=== PATIENT | female | born 1980 | race African-American/Black ===

== ENCOUNTER 2016-06-01 14:23 | Inpatient (IN) ==
[2016-06-01 15:46] LABS: Basophils % 0.2 %; Eosinophils % 0.2 %; Hematocrit 35.9 % (35.3-44.9); Hemoglobin 12.5 g/dL (11.5-15.4); Immature Granulocytes % 0.4 % (0-4); Lymphocytes # 1.3 K/mcL (0.6-4.6); Lymphocytes % 28.4 %; Mean Corpuscular HGB Conc 34.8 g/dL (31.6-35.5); Mean Corpuscular Hemoglobin 33.6 pg (28.0-33.3); Mean Corpuscular Volume 96.5 fL (83.0-100.0); Mean Platelet Volume 8.5 fL (9.4-12.4); Monocytes # 0.2 K/mcL (0.0-1.3); Platelet Count 305 K/mcL (140-400); Red Blood Count 3.72 M/mcL (3.82-4.97); Red Cell Distribution Width 13.4 % (11.5-14.5); Segmented Neutrophils % 66.8 %
[2016-06-01 15:49] LABS: Bilirubin,Urine Negative (Negative); Blood,Urine Trace (Negative); Clarity,Urine Cloudy (Clear); Color,Urine Yellow (Yellow); Glucose,Urine (UA) Normal (Normal); Ketones,Urine Negative (Negative); Leukocyte Esterase,Urine Trace (Negative); Nitrite,Urine Positive (Negative); PH,Urine 6.5 pH Units (5.0-8.0); Protein,Urine Negative (Neg-Trace); Specific Gravity,Urine 1.017 (1.010-1.025); Urobilinogen,Urine Normal (Normal)
[2016-06-01 15:50] LABS: Bacteria,Urine Moderate per hpf (None-Few); Hyaline Casts,Urine None Seen per lpf (None-Few); Squamous Epithelial Cell,Urine Many per lpf (None-Few)
[2016-06-01 15:59] LABS: BUN/Creatinine Ratio 7 (6-26); Calcium 9.1 mg/dL (8.6-10.8); Carbon Dioxide 23 mEq/L (19-29); Chloride 102 mEq/L (98-109); Glucose 91 mg/dL (70-99); Osmolality,Calculated 281 (280-300); Potassium 3.3 mEq/L (3.5-4.5); Sodium 137 mEq/L (136-145); eGFR For African Americans > 60 (> 60); eGFR For Non-African Americans > 60 (> 60)
[2016-06-01 16:00] LABS: Blood Urea Nitrogen 5 mg/dL (7-20)
[2016-06-01 21:56] LABS: Activated Partial Thrombo Time 25.3 Seconds (26.0-36.0)
[2016-06-02 04:30] LABS: Basophils % 0.2 %; Eosinophils % 0.4 %; Hematocrit 36.9 % (35.3-44.9); Hemoglobin 12.8 g/dL (11.5-15.4); Immature Granulocytes % 0.2 % (0-4); Lymphocytes # 1.8 K/mcL (0.6-4.6); Lymphocytes % 32.4 %; Mean Corpuscular HGB Conc 34.7 g/dL (31.6-35.5); Mean Corpuscular Hemoglobin 33.3 pg (28.0-33.3); Mean Corpuscular Volume 96.1 fL (83.0-100.0); Mean Platelet Volume 8.3 fL (9.4-12.4); Monocytes # 0.2 K/mcL (0.0-1.3); Monocytes % 4.4 %; Neutrophils # 3.4 K/mcL (1.6-8.9); Platelet Count 307 K/mcL (140-400); Red Blood Count 3.84 M/mcL (3.82-4.97); Red Cell Distribution Width 13.4 % (11.5-14.5); Segmented Neutrophils % 62.4 %
[2016-06-02 04:41] LABS: BUN/Creatinine Ratio 6 (6-26); Calcium 9.2 mg/dL (8.6-10.8); Carbon Dioxide 24 mEq/L (19-29); Chloride 102 mEq/L (98-109); Glucose 86 mg/dL (70-99); Osmolality,Calculated 276 (280-300); Potassium 3.3 mEq/L (3.5-4.5); Sodium 135 mEq/L (136-145); eGFR For African Americans > 60 (> 60); eGFR For Non-African Americans > 60 (> 60)
[2016-06-02 04:43] LABS: Blood Urea Nitrogen 4 mg/dL (7-20)
[2016-06-02 16:35] LABS: Amphetamine Screen,Urine Negative ng/mL (Cutoff=1000); Barbiturate Screen,Urine Negative ng/mL (Cutoff=200); Benzodiazepines Screen,Urine Negative ng/mL (Cutoff=200); Cannabinoid Screen,Urine Negative ng/mL (Cutoff = 50); Cocaine Screen,Urine Negative ng/mL (Cutoff= 300); Opiate Screen,Urine Positive ng/mL (Cutoff=300); Phencyclidine Screen,Urine Negative ng/mL (Cutoff=25)
[2016-06-03 05:44] LABS: BUN/Creatinine Ratio 8 (6-26); Blood Urea Nitrogen 6 mg/dL (7-20); Calcium 8.9 mg/dL (8.6-10.8); Carbon Dioxide 24 mEq/L (19-29); Chloride 104 mEq/L (98-109); Glucose 87 mg/dL (70-99); Osmolality,Calculated 281 (280-300); Potassium 3.4 mEq/L (3.5-4.5); Sodium 137 mEq/L (136-145); eGFR For African Americans > 60 (> 60); eGFR For Non-African Americans > 60 (> 60)
[2016-06-04 05:27] LABS: Basophils % 0.2 %; Eosinophils # 0.1 K/mcL (0.0-0.6); Eosinophils % 1.3 %; Hematocrit 34.3 % (35.3-44.9); Hemoglobin 11.9 g/dL (11.5-15.4); Immature Granulocytes % 0.2 % (0-4); Lymphocytes # 1.8 K/mcL (0.6-4.6); Lymphocytes % 39.5 %; Mean Corpuscular HGB Conc 34.7 g/dL (31.6-35.5); Mean Corpuscular Hemoglobin 34.4 pg (28.0-33.3); Mean Corpuscular Volume 99.1 fL (83.0-100.0); Mean Platelet Volume 8.7 fL (9.4-12.4); Monocytes # 0.2 K/mcL (0.0-1.3); Monocytes % 4.5 %; Neutrophils # 2.4 K/mcL (1.6-8.9); Platelet Count 290 K/mcL (140-400); Red Blood Count 3.46 M/mcL (3.82-4.97); Red Cell Distribution Width 13.8 % (11.5-14.5); Segmented Neutrophils % 54.3 %
[2016-06-04 05:48] LABS: BUN/Creatinine Ratio 12 (6-26); Blood Urea Nitrogen 9 mg/dL (7-20); Calcium 8.5 mg/dL (8.6-10.8); Carbon Dioxide 24 mEq/L (19-29); Chloride 105 mEq/L (98-109); Glucose 71 mg/dL (70-99); Magnesium 1.5 mg/dL (1.6-2.6); Osmolality,Calculated 285 (280-300); Phosphorous 4.5 mg/dL (2.3-4.7); Potassium 3.6 mEq/L (3.5-4.5); Sodium 139 mEq/L (136-145); eGFR For African Americans > 60 (> 60); eGFR For Non-African Americans > 60 (> 60)
[2016-06-04 08:53] VITALS: BP 111/75
== END 2016-06-04 13:10 | disposition home or self-care (01) | DRG 690 ==
LOC: EMEROO 14:23 → 3ANU 14:23 → 2NNU 23:06 → SUATTDRO 23:07
PROVIDERS: ADMIT Nurse Practitioner Acute Care; ATTEND Internal Medicine

== ENCOUNTER 2017-08-17 17:39 | Inpatient (IN) ==
[2017-08-17] MEDS ORDERED: cefTRIAXone 1,000 MG in Water for inj. (sterile) 20 ML 10 ML IVP ONE (18:19)
--- NOTE | 2017-08-17 18:25 | Emergency Department Note ---
Disposition Clinical Impression: Pyelonephritis Disposition: Admitted As Inpatient Referrals: Meg Wise MD [Primary Care Provider] - General Adult HPI - General Chief complaint: ED Recheck/Abnormal Lab/Rx Stated complaint: 2x +BC EColi/pylo Time Seen by Provider: 08/17/17 18:16 Source: patient Limitations: no limitations - History of Present Illness Pain Scale: 6 - Related Data Home Medications Medication Instructions Recorded Confirmed OxyCODONE ER (12 HR) [OxyCONTIN] 40 mg PO Q12HR 08/25/16 08/25/16 Previous Rx's Medication Instructions Recorded ALPRAZolam [Xanax 1 MG Tablet] 1 mg PO BID PRN #20 tablet 06/04/16 Lisinopril/Hydrochlorothiazide 1 tab PO DAILY #20 tablet 06/04/16 [Zestoretic 20-25 mg Tablet] Ibuprofen [Motrin] 600 mg PO Q6HR PRN #60 tab 08/25/16 Tramadol HCl [Ultram] 50 mg PO BID PRN #20 tab 08/25/16 Cephalexin [Keflex] 500 mg PO Q8H #21 capsule 08/16/17 Oxycodone HCl/Acetaminophen 1 each PO Q6H PRN 1 Days #4 tablet 08/16/17 [Percocet 5-325 mg Tablet] Allergies Allergy/AdvReac Type Severity Reaction Status Date / Time No Known Allergies Allergy Verified 08/25/16 12:01 Past Medical History - Past Medical History Medical history: Reports: hypertension, other Surgical history: Reports: breast surgery, knee replacement, other Psychiatric history: Reports: anxiety, depression - Social History Smoking Status: Never smoker Smokeless Tobacco Status: No Alcohol use: Reports: occasionally Drug use: Reports: none Physical Exam - General Limitations: no limitations General appearance: alert, in no apparent distress Course Vital Signs Temperature 101.5 F H 08/17/17 17:51 Pulse Rate 112 08/17/17 17:51 Respiratory Rate 18 08/17/17 17:51 Blood Pressure 125/76 08/17/17 17:51 O2 Sat by Pulse Oximetry 98 08/17/17 17:51 Temperature 101.5 F H 08/17/17 17:51 Pulse Rate 112 08/17/17 17:51 Respiratory Rate 18 08/17/17 17:51 Blood Pressure 125/76 08/17/17 17:51 O2 Sat by Pulse Oximetry 98 08/17/17 17:51 Oxygen Delivery Oxygen Delivery Room Air Attestation Statement - Attestation Attestation: I examined this patient and my medical decision-making was reviewed with the Resident Physician. I agree with the documented findings, disposition and treatment plan as described except to the extent set forth below. 37 year old female presnte to the eD wi complaints of pyelonephritis and was seen here yesterday for UTI symptoms and we have called her back today secondary to growing out Ecoli in her urine and blood culture. We will need admisison to the [facility] and we have started sepsis protocol due to elevated lactic acid yesterday. repeat labs have been ordered as well as rocephin.
--- NOTE | 2017-08-17 18:26 | Emergency Department Note ---
Disposition Clinical Impression: Pyelonephritis, Bacteremia Sepsis Qualifiers: Sepsis type: sepsis due to unspecified organism Qualified Code(s): A41.9 - Sepsis, unspecified organism Disposition: Admitted As Inpatient Condition: Good Referrals: Meg Wise MD [Primary Care Provider] - Forms: ED Satisfaction Letter Recheck wound or abnormal lab - General Chief Complaint: ED Recheck/Abnormal Lab/Rx Stated Complaint: 2x +BC EColi/pylo Time Seen by Provider: 08/17/17 18:16 Source: patient Mode of arrival: private vehicle Limitations: no limitations Nursing Notes Reviewed: Yes Vital Signs Reviewed: Yes - History of Present Illness HPI Narrative: 37-year-old female history of chronic UTIs presents to the ER with a chief complaint of abnormal lab results. Reports that she actually started having her UTI symptoms including foul-smelling urine and cloudiness about 1 month ago. Denies any recent antibiotics. She was evaluated here yesterday and diagnosed with a UTI. Reports she was given a dose of IV antibiotics and started on oral antibiotics. Her blood culture results were positive so she was called to come back in for evaluation. She reports chills at home as well as fevers. She has been nauseous and having diarrhea. Reports pain is mostly in her right flank. She has a prior history of kidney stones when she was 16. No history of requiring extraction. No other complaints. Pt Subjective Complaint: abnormal lab(s) Initial Visit (ago): day(s) Symptoms Since Prior Visit: no new symptoms Associated symptoms: fever, chills, nausea, abdominal pain Treatments prior to arrival: given antibiotics on (08/16) - Related Data Home Medications Medication Instructions Recorded Confirmed diazePAM [Valium] 5 mg PO BID 08/17/17 08/17/17 Previous Rx's Medication Instructions Recorded Lisinopril/Hydrochlorothiazide 1 tab PO DAILY #20 tablet 06/04/16 [Zestoretic 20-25 mg Tablet] Allergies Allergy/AdvReac Type Severity Reaction Status Date / Time No Known Allergies Allergy Verified 08/25/16 12:01 All systems ED: reviewed and negative except as stated. Constitutional: Reports: fever, chills Gastrointestinal: Reports: abdominal pain, nausea, diarrhea. Denies: vomiting Genitourinary: Reports: dysuria. Denies: hematuria Past Medical History - Past Medical History Attestation: Yes The following information was validated with the patient. Source: patient Medical history: Reports: hypertension, other Surgical history: Reports: breast surgery, knee replacement, other Psychiatric history: Reports: anxiety, depression - Social History Smoking Status: Never smoker Smokeless Tobacco Status: No Alcohol use: Reports: occasionally Drug use: Reports: none Physical Exam - General Limitations: no limitations General appearance: alert, in no apparent distress - Head Head exam: atraumatic, normocephalic - Eye Eye exam: Present: normal appearance - ENT ENT exam: normal exam - Neck Neck exam: Present: normal inspection - Chest Chest inspection: Present: normal inspection, symmetric chest wall rise - Respiratory Respiratory exam: Present: normal lung sounds bilaterally - Cardiovascular Cardiovascular exam: Present: normal rhythm, tachycardia, normal heart sounds - Abdominal Exam Abdominal exam: Present: soft, tenderness (Moderate right flank tenderness without distention guarding or rigidity otherwise.) - Extremities Exam Extremities exam: Present: normal inspection, full ROM - Expanded Upper Extremity Exam Shoulder exam: Present: normal inspection, full ROM Arm exam: Present: normal inspection, full ROM Elbow exam: Present: normal inspection, full ROM Forearm/Wrist exam: Present: normal inspection, full ROM Hand exam: Present: normal inspection, full ROM - Expanded Lower Extremity Exam Hip/Pelvis exam: Present: normal inspection, full ROM Upper leg exam: Present: normal inspection, full ROM Knee exam: Present: normal inspection, full ROM Lower leg exam: Present: normal inspection, full ROM Ankle exam: Present: normal inspection, full ROM Foot/toe exam: Present: normal inspection, full ROM - Skin Skin exam: Present: warm Course Course Narrative: Patient seen and examined. Vital signs reviewed. Febrile and tachycardic. Source being suspected pyelonephritis. Plan to start IV fluids, labs including lactate, repeat blood cultures. Reviewed her prior culture sensitivities showing Escherichia coli that was mostly pansensitive. We will repeat her blood cultures, given a dose of Rocephin, CT scan given prior history of kidney stones due to concern for septic stone and admit for pyelonephritis, sepsis. Patient in agreement with plan. Vital Signs Temperature 101.5 F H 08/17/17 17:51 Pulse Rate 112 08/17/17 17:51 Respiratory Rate 18 08/17/17 17:51 Blood Pressure 125/76 08/17/17 17:51 O2 Sat by Pulse Oximetry 98 08/17/17 17:51 Temperature 101.5 F H 08/17/17 17:51 Pulse Rate 112 08/17/17 17:51 Respiratory Rate 18 08/17/17 17:51 Blood Pressure 125/76 08/17/17 17:51 O2 Sat by Pulse Oximetry 99 08/17/17 19:04 Oxygen Delivery Oxygen Delivery Room Air Recheck wound or abnormal lab - MDM Narrative Medical decision making narrative: 37-year-old female with right flank pain, dysuria. Recently seen for UTI. Abnormal labs with positive blood cultures today. Febrile and tachycardic on arrival. Meets sepsis criteria for pyelonephritis. Reviewed prior cultures showing relatively lan sensitive Escherichia coli. Patient given 1 L IV fluids , Rocephin, Tylenol and admitted to the hospitalist service for pyelonephritis, bacteremia, sepsis. - Lab Data Lab results reviewed: Yes I reviewed the patient's lab results. Result diagrams: 08/17/17 18:37 08/17/17 18:37 Lab Results 08/17/17 08/17/17 08/17/17 Range/Units 18:37 18:37 18:37 WBC 5.1 (4.3-11.1) K/mcL RBC 3.42 L (3.82-4.97) M/mcL Hgb 11.8 (11.5-15.4) g/dL Hct 33.6 L (35.3-44.9) % MCV 98.2 (83.0-100.0) fL MCH 34.5 H (28.0-33.3) pg MCHC 35.1 (31.6-35.5) g/dL RDW 12.8 (11.5-14.5) % Plt Count 187 (140-400) K/mcL MPV 9.1 L (9.4-12.4) fL Immature Gran % 0.4 (0-4) % Seg Neutrophils % 83.5 % Lymphocytes % 9.8 % Monocytes % 5.9 % Eosinophils % 0.2 % Basophils % 0.2 % Neutrophils # 4.2 (1.6-8.9) K/mcL Lymphocytes # 0.5 L (0.6-4.6) K/mcL Monocytes # 0.3 (0.0-1.3) K/mcL Eosinophils # 0.0 (0.0-0.6) K/mcL Basophils # 0.0 (0.0-0.2) K/mcL PT 10.6 (9.4-12.1) Seconds INR 1.0 APTT 27.9 (26.0-36.0) Seconds Sodium 134 L (136-145) mEq/L Potassium 2.6 L (3.5-5.1) mEq/L Chloride 100 (98-107) mEq/L Carbon Dioxide 22 L (23-29) mEq/L BUN 5 L (6-20) mg/dL Creatinine 0.59 L (0.60-1.20) mg/dL Est GFR ( Amer) > 60 (> 60) Est GFR (Non-Af Amer) > 60 (> 60) BUN/Creatinine Ratio 8 (6-26) Glucose 100 (70-105) mg/dL Calculated Osmolality 275 L (280-300) Lactic Acid (0.5-2.2) mmol/L Calcium 8.9 (8.6-10.3) mg/dL Phosphorus 1.7 L (2.7-4.5) mg/dL Magnesium 1.4 L (1.6-2.6) mg/dL Total Bilirubin 0.4 (0.3-1.0) mg/dL Direct Bilirubin 0.1 (0.0-0.2) mg/dL Indirect Bilirubin 0.3 (0.0-1.2) mg/dL AST 34 (13-39) Units/L ALT 18 (7-52) Units/L Alkaline Phosphatase 79 (34-104) Units/L Troponin I < 0.03 (< 0.04) ng/mL Serum Total Protein 6.9 (6.4-8.9) g/dL Albumin 3.4 L (3.5-5.7) g/dL Globulin 3.5 (2.4-3.5) g/dL Albumin/Globulin Ratio 1.0 L (1.1-2.2) Urine Color (Yellow) Urine Clarity (Clear) Urine pH (5.0-8.0) pH Units Ur Specific [place] (1.010-1.025) Urine Protein (Neg-Trace) mg/dL Urine Glucose (UA) (Normal) mg/dL Urine Ketones (Negative) mg/dL Urine Blood (Negative) Urine Nitrite (Negative) Urine Bilirubin (Negative) Urine Urobilinogen (Normal) mg/dL Ur Leukocyte Esterase (Negative) Urine Microscopic RBC (0-3) per hpf Urine Microscopic WBC (0-3) per hpf Ur Squamous Epith Cells (None-Few) per lpf Urine Bacteria (None-Few) per hpf Hyaline Casts (None-Few) per lpf Ur Culture Indicated? (NO) 08/17/17 08/17/17 Range/Units 18:37 19:20 WBC (4.3-11.1) K/mcL RBC (3.82-4.97) M/mcL Hgb (11.5-15.4) g/dL Hct (35.3-44.9) % MCV (83.0-100.0) fL MCH (28.0-33.3) pg MCHC (31.6-35.5) g/dL RDW (11.5-14.5) % Plt Count (140-400) K/mcL MPV (9.4-12.4) fL Immature Gran % (0-4) % Seg Neutrophils % % Lymphocytes % % Monocytes % % Eosinophils % % Basophils % % Neutrophils # (1.6-8.9) K/mcL Lymphocytes # (0.6-4.6) K/mcL Monocytes # (0.0-1.3) K/mcL Eosinophils # (0.0-0.6) K/mcL Basophils # (0.0-0.2) K/mcL PT (9.4-12.1) Seconds INR APTT (26.0-36.0) Seconds Sodium (136-145) mEq/L Potassium (3.5-5.1) mEq/L Chloride (98-107) mEq/L Carbon Dioxide (23-29) mEq/L BUN (6-20) mg/dL Creatinine (0.60-1.20) mg/dL Est GFR ( Amer) (> 60) Est GFR (Non-Af Amer) (> 60) BUN/Creatinine Ratio (6-26) Glucose (70-105) mg/dL Calculated Osmolality (280-300) Lactic Acid 1.3 (0.5-2.2) mmol/L Calcium (8.6-10.3) mg/dL Phosphorus (2.7-4.5) mg/dL Magnesium (1.6-2.6) mg/dL Total Bilirubin (0.3-1.0) mg/dL Direct Bilirubin (0.0-0.2) mg/dL Indirect Bilirubin (0.0-1.2) mg/dL AST (13-39) Units/L ALT (7-52) Units/L Alkaline Phosphatase (34-104) Units/L Troponin I (< 0.04) ng/mL Serum Total Protein (6.4-8.9) g/dL Albumin (3.5-5.7) g/dL Globulin (2.4-3.5) g/dL Albumin/Globulin Ratio (1.1-2.2) Urine Color Yellow (Yellow) Urine Clarity Clear (Clear) Urine pH 6.0 (5.0-8.0) pH Units Ur Specific [place] 1.010 (1.010-1.025) Urine Protein Trace (Neg-Trace) mg/dL Urine Glucose (UA) Normal (Normal) mg/dL Urine Ketones Negative (Negative) mg/dL Urine Blood Small H (Negative) Urine Nitrite Negative (Negative) Urine Bilirubin Negative (Negative) Urine Urobilinogen Normal (Normal) mg/dL Ur Leukocyte Esterase Small H (Negative) Urine Microscopic RBC 5-15 H (0-3) per hpf Urine Microscopic WBC 15-30 H (0-3) per hpf Ur Squamous Epith Cells Many H (None-Few) per lpf Urine Bacteria None Seen (None-Few) per hpf Hyaline Casts None Seen (None-Few) per lpf Ur Culture Indicated? NO. A (NO) - Radiology Data Radiology results reviewed: Yes I reviewed the patient's radiology results. Abdomen/Pelvis CT 08/17/17 18:30 IMPRESSION: No CT evidence for acute intra-abdominal process. Specifically, no renal, ureteral or intravesicular calculi. No hydronephrosis of either kidney. D/ / Carlos Sylvester / Carlos Sylvester Interpreting Provider: Carlos Sylvester S.B.A.R. - S.BGiuseppeA.RGiuseppe Situation: Demographics, MOA Background: Presenting Complaint, Relevant PMH, Meds, & Allergies Assessment: Vital Signs, Course and respsone to treatment, Exam Concerns, Patient/Family Expectation, Pertinant Lab Results Recommendation: Barrier(s) to disposition, Recommendation based on pending studies, treatments, or consults SMaryjane Report Given to: Dr. Ernesto Washington Repor Time: 19:48
[2017-08-17] MEDS: 0.9 % Sodium Chloride 1,000 ML IVC SCH ×3 (18:51→19:40)
[2017-08-17 18:56] LABS: Basophils % 0.2 %; Eosinophils % 0.2 %; Hematocrit 33.6 % (35.3-44.9); Hemoglobin 11.8 g/dL (11.5-15.4); Immature Granulocytes % 0.4 % (0-4); Lymphocytes # 0.5 K/mcL (0.6-4.6); Lymphocytes % 9.8 %; Mean Corpuscular HGB Conc 35.1 g/dL (31.6-35.5); Mean Corpuscular Hemoglobin 34.5 pg (28.0-33.3); Mean Corpuscular Volume 98.2 fL (83.0-100.0); Mean Platelet Volume 9.1 fL (9.4-12.4); Monocytes # 0.3 K/mcL (0.0-1.3); Monocytes % 5.9 %; Neutrophils # 4.2 K/mcL (1.6-8.9); Platelet Count 187 K/mcL (140-400); Red Blood Count 3.42 M/mcL (3.82-4.97); Red Cell Distribution Width 12.8 % (11.5-14.5); Segmented Neutrophils % 83.5 %
[2017-08-17 19:05] LABS: Prothrombin Time 10.6 Seconds (9.4-12.1)
[2017-08-17 19:08] LABS: Activated Partial Thrombo Time 27.9 Seconds (26.0-36.0)
[2017-08-17 19:13] LABS: Alanine Aminotransferase 18 Units/L (7-52); Albumin 3.4 g/dL (3.5-5.7); Alkaline Phosphatase 79 Units/L (34-104); Aspartate Amino Transferase 34 Units/L (13-39); BUN/Creatinine Ratio 8 (6-26); Bilirubin,Direct 0.1 mg/dL (0.0-0.2); Bilirubin,Indirect 0.3 mg/dL (0.0-1.2); Bilirubin,Total 0.4 mg/dL (0.3-1.0); Blood Urea Nitrogen 5 mg/dL (6-20); Calcium 8.9 mg/dL (8.6-10.3); Carbon Dioxide 22 mEq/L (23-29); Chloride 100 mEq/L (98-107); Globulin 3.5 g/dL (2.4-3.5); Glucose 100 mg/dL (70-105); Magnesium 1.4 mg/dL (1.6-2.6); Osmolality,Calculated 275 (280-300); Phosphorous 1.7 mg/dL (2.7-4.5); Potassium 2.6 mEq/L (3.5-5.1); Sodium 134 mEq/L (136-145); Total Protein 6.9 g/dL (6.4-8.9); Troponin I < 0.03 ng/mL (< 0.04); eGFR For African Americans > 60 (> 60); eGFR For Non-African Americans > 60 (> 60)
[2017-08-17 19:28] LABS: Bilirubin,Urine Negative (Negative); Blood,Urine Small (Negative); Clarity,Urine Clear (Clear); Color,Urine Yellow (Yellow); Glucose,Urine (UA) Normal (Normal); Ketones,Urine Negative (Negative); Leukocyte Esterase,Urine Small (Negative); Nitrite,Urine Negative (Negative); Protein,Urine Trace mg/dL (Neg-Trace); Urobilinogen,Urine Normal (Normal)
[2017-08-17 19:30] LABS: Bacteria,Urine None Seen per hpf (None-Few); Hyaline Casts,Urine None Seen per lpf (None-Few); Squamous Epithelial Cell,Urine Many per lpf (None-Few); WBC,Urine 15-30 per hpf (0-3)
[2017-08-17] MEDS ORDERED: Ketorolac 15 MG/ML VIAL IVP ONE (19:48)
--- NOTE | 2017-08-17 23:11 | Internal Med History&Physical ---
<Jarred Hayes - Last Filed: 08/18/17 03:34> Date of Encounter: 08/18/17 Time of Encounter: 23:11 Internal Medicine - H&P: HPI Chief complaint: flank pain Admitted From: Home Plans for Post Hospital Care: Home History of present illness: Ms. Manning is a 37 year old female w/ pmh of recurrent UTI, s/p tubal ligation in 2002, anxiety, HTN presents with right flank pain that started 1 month ago. Yesterday she was evaluated for UTI and was found to have be positive for Gram neg in urine and blood cx. She was then instructed to come to [place] ED. Patient states she has a sharp 10/10 flank pain that radiates to her back and to her groin. pain is worsened with movement, and is constantly present. Pain is not relieved with tylenol. Patient has associated nausea. Urine has been cloudy, foamy, and foul smelling. Patient denies vomiting, constipation, fever, chills, confusion, difficulty peeing. Past Med Surg Social Fam HX - Past Medical History Medical history: hypertension, other Psychiatric history: anxiety, depression - Past Surgical History Surgical History: breast surgery, knee replacement, other - Social History Smoking Status: Never smoker Smokeless Tobacco Status: No Alcohol use: occasionally Drug use: none - Family History Mother Adopted: Yes Father Adopted: Yes Internal Medicine - H&P: Meds Lisinopril/Hydrochlorothiazide [Zestoretic 20-25 mg Tablet] 1 tab PO DAILY #20 tablet 06/04/16 [Rx] diazePAM [Valium] 5 mg PO BID 08/17/17 [History] 3 Allergy/AdvReac Type Severity Reaction Status Date / Time No Known Allergies Allergy Verified 08/25/16 12:01 All Systems PM: A 10-system review of systems was performed and is negative for pertinent findings except as documented above in the HPI. - Constitutional Constitutional: weakness, no anorexia, no chills, no fever(s), no night sweats - EENT Eyes: no change in vision, no discharge, no pain, no photophobia Ears: no ear discharge, no ear pain, no tinnitus Nose, mouth and throat: no dysphagia, no nasal discharge, no neck pain, no sore throat - Cardiovascular Cardiovascular ROS IM: no chest pain, no claudication, no diaphoresis, no dyspnea, no dyspnea on exertion, no edema, no lightheadedness, no orthopnea, no palpitations, no paroxysmal nocturnal dyspnea, no syncope - Respiratory Respiratory: no cough, no dyspnea, no dyspnea on exertion, no wheezing, no excessive phlegm production - Gastrointestinal Gastrointestinal: no abdominal pain, no diarrhea, no hematemesis, no hematochezia, no melena, no nausea, no vomiting - Genitourinary Genitourinary: no change in urinary stream, no dysuria, no flank pain, no hematuria - Musculoskeletal Musculoskeletal ROS IM: no numbness, no tingling - Integumentary Integumentary IM: no rash, no unusual bruising - Neurological Neurological ROS: no confusion, no convulsions, no focal weakness, no numbness, no tingling, no tremor(s) - Hematologic/Lymphatic Hematologic/Lymphatic: no easy bruising - Constitutional Vitals: Temp Pulse Resp BP Pulse Ox 98.3 F 88 15 123/83 99 08/17/17 21:36 08/17/17 21:36 08/17/17 21:36 08/17/17 21:36 08/17/17 21:36 General appearance: Present: cooperative, mild distress, A&O X 3, pleasant, answers questions appropriately Exam: patient is curled up and in visibly in pain - Head Head exam: Present: atraumatic, normocephalic - Eye Eye exam: Present: PERRL, conjuntiva pink, sclera anicteric Pupils: Present: PERRL - Neck Neck exam general surgery: Present: supple, trachea midline. Absent: lymphadenopathy - Respiratory Respiratory exam: Present: CTAB. Absent: accessory muscle use, chest wall tenderness, decreased breath sounds, prolonged expiratory phase, rales, respiratory distress, rhonchi, wheezes - Cardiovascular Cardiovascular exam: Present: tachycardia. Absent: diastolic murmur, distant heart sounds, gallop, irregular rhythm, JVD, rubs, systolic murmur - GI/Abdominal GI/Abdominal exam: Present: normal bowel sounds, soft, no peritoneal signs. Absent: distended, tenderness - Extremities Exam Extremities exam: Present: warm, radial pulses palpable and symmetrical. Absent : calf tenderness, cyanotic, pedal edema - Neurological Exam Neurological exam: Present: CN II-XII intact, oriented X3, no focal deficits. Absent: pronater drift, facial droop, speech deficit - Skin Skin exam: Present: dry, intact Internal Med - H&P Results - Labs CBC & Chem 7: 08/17/17 18:37 08/17/17 18:37 - Assessment and plan (1) Sepsis Current Visit: Yes Status: Acute Assessment and plan: On admission SIRS criterai (febrile, tachycardic). Source is most likely form UTI/bacteremia. prelim cultures positive for gram negative rods. No acute findings on CT abdomen. Patient is currently stable and no longer tachycardic or febrile. - tylenol for temp control - closely follow vitals - ceftriaxone 1g until sensitivities come back - toradol for pain control - continue IVF - encourage PO fluid intake - morning labs Qualifiers: Sepsis type: sepsis due to unspecified organism Qualified Code(s): A41.9 - Sepsis, unspecified organism (2) Bacteremia Current Visit: Yes Status: Acute Assessment and plan: preliminary positive for gram neg rods. see above (3) Hypertension Current Visit: Yes Status: Chronic Assessment and plan: patient has a previous hx of hypertensive emergency. home rx on hold. - hydralazine PRN if SBP >160 Qualifiers: Hypertension type: essential hypertension Qualified Code(s): I10 - Essential (primary) hypertension (4) Hypokalemia Current Visit: Yes Status: Resolved Assessment and plan: K+ on admission 2.6. K+ PO 40 given in ED. Recheck in AM (5) Nausea Current Visit: Yes Status: Acute Assessment and plan: controlled with zofran. (6) UTI (urinary tract infection) Current Visit: Yes Status: Acute Assessment and plan: prelim gram negative. see above Qualifiers: Urinary tract infection type: acute cystitis Hematuria presence: without hematuria Qualified Code(s): N30.00 - Acute cystitis without hematuria (7) DVT prophylaxis Current Visit: Yes Status: Acute Assessment and plan: sq heparin (8) Hypomagnesemia Current Visit: Yes Status: Acute Assessment and plan: low on admission, replenished. (9) Hypophosphatemia Current Visit: Yes Status: Acute Assessment and plan: low on admission, replenished. - Time Spent With Patient Total time spent is greater than 50% in coordination of care (as documented) at patient's floor/unit and/or counseling patient: <Carla Orozco - Last Filed: 08/18/17 05:39> Date of Encounter: 08/18/17 Internal Medicine - H&P: HPI History of present illness: Ms. Manning is a 37 year old female All Systems PM: A 10-system review of systems was performed and is negative for pertinent findings except as documented above in the HPI. - Constitutional Vitals: Temp Pulse Resp BP Pulse Ox 98.2 F 78 15 101/66 98 08/18/17 03:15 08/18/17 03:15 08/18/17 03:15 08/18/17 03:15 08/18/17 03:15 Internal Med - H&P Results - Labs CBC & Chem 7: 08/18/17 04:09 08/18/17 04:09 Labs: Short CBC 08/18/17 Range/Units 04:09 WBC 3.6 L (4.3-11.1) K/mcL Hgb 9.3 L D (11.5-15.4) g/dL Hct 27.3 L (35.3-44.9) % Plt Count 134 L (140-400) K/mcL Neutrophils # 2.7 (1.6-8.9) K/mcL BMP 08/18/17 04:09 Sodium 136 Potassium 2.7 L Chloride 107 Carbon Dioxide 21 L BUN 4 L Creatinine 0.56 L Glucose 108 H Calcium 7.4 L Liver Function 08/18/17 Range/Units 04:09 Total Bilirubin 0.3 (0.3-1.0) mg/dL AST 33 (13-39) Units/L ALT 16 (7-52) Units/L Alkaline Phosphatase 61 (34-104) Units/L Albumin 2.7 L (3.5-5.7) g/dL - Attending Attestation I have seen and examined this patient independently. I have discussed with resident physician Dr. Hayes regarding the management plan. Agree with the documentation. - Assessment and plan (1) UTI (urinary tract infection) Current Visit: Yes Status: Acute Qualifiers: Urinary tract infection type: acute cystitis Hematuria presence: without hematuria Qualified Code(s): N30.00 - Acute cystitis without hematuria (2) Nausea Current Visit: Yes Status: Acute (3) Hypertension Current Visit: Yes Status: Chronic Qualifiers: Hypertension type: essential hypertension Qualified Code(s): I10 - Essential (primary) hypertension (4) DVT prophylaxis Current Visit: Yes Status: Acute (5) Hypokalemia Current Visit: Yes Status: Resolved (6) Sepsis Current Visit: Yes Status: Acute Qualifiers: Sepsis type: sepsis due to unspecified organism Qualified Code(s): A41.9 - Sepsis, unspecified organism (7) Bacteremia Current Visit: Yes Status: Acute (8) Hypomagnesemia Current Visit: Yes Status: Acute (9) Hypophosphatemia Current Visit: Yes Status: Acute - Time Spent With Patient Total time spent is greater than 50% in coordination of care (as documented) at patient's floor/unit and/or counseling patient:
[2017-08-18] MEDS ORDERED: Naloxone 0.4 MG/ML INJ IVP PRN (01:00)
[2017-08-18] MEDS ORDERED: 0.9 % Sodium Chloride 1,000 ML IVC SCH (01:00)
[2017-08-18] MEDS ORDERED: Acetaminophen 325 MG TABLET PO PRN (01:23)
[2017-08-18] MEDS: *HR* OxyCODONE/APAP 5/325 TABLET PO PRN ×3 (01:51→13:41)
[2017-08-18] MEDS: diazePAM 5 MG TABLET PO SCH ×3 (02:27→20:41)
[2017-08-18] MEDS ORDERED: Potassium Phosphate 44 MEQ in 0.9 % Sodium Chloride 250 ML IVPB ONE (03:32)
[2017-08-18 04:38] LABS: Basophils % 0.3 %; Eosinophils % 0.8 %; Hematocrit 27.3 % (35.3-44.9); Hemoglobin 9.3 g/dL (11.5-15.4); Immature Granulocytes % 0.6 % (0-4); Lymphocytes # 0.6 K/mcL (0.6-4.6); Lymphocytes % 16.5 %; Mean Corpuscular HGB Conc 34.1 g/dL (31.6-35.5); Mean Corpuscular Hemoglobin 34.4 pg (28.0-33.3); Mean Corpuscular Volume 101.1 fL (83.0-100.0); Mean Platelet Volume 9.4 fL (9.4-12.4); Monocytes # 0.2 K/mcL (0.0-1.3); Monocytes % 6.3 %; Neutrophils # 2.7 K/mcL (1.6-8.9); Platelet Count 134 K/mcL (140-400); Red Cell Distribution Width 13.1 % (11.5-14.5); Segmented Neutrophils % 75.5 %
[2017-08-18 04:59] LABS: Alanine Aminotransferase 16 Units/L (7-52); Albumin 2.7 g/dL (3.5-5.7); Alkaline Phosphatase 61 Units/L (34-104); Aspartate Amino Transferase 33 Units/L (13-39); BUN/Creatinine Ratio 7 (6-26); Bilirubin,Total 0.3 mg/dL (0.3-1.0); Blood Urea Nitrogen 4 mg/dL (6-20); Calcium 7.4 mg/dL (8.6-10.3); Carbon Dioxide 21 mEq/L (23-29); Chloride 107 mEq/L (98-107); Globulin 2.7 g/dL (2.4-3.5); Glucose 108 mg/dL (70-105); Osmolality,Calculated 279 (280-300); Potassium 2.7 mEq/L (3.5-5.1); Sodium 136 mEq/L (136-145); Total Protein 5.4 g/dL (6.4-8.9); eGFR For African Americans > 60 (> 60); eGFR For Non-African Americans > 60 (> 60)
[2017-08-18] MEDS: *HR* Heparin 5,000 UNIT/ML VIAL SQ SCH ×2 (05:56→17:37)
[2017-08-18] MEDS ORDERED: Acetaminophen 325 MG TABLET PO SCH (06:00)
[2017-08-18] MEDS ORDERED: Ondansetron 4 MG/2 ML VIAL IVP SCH (06:00)
--- NOTE | 2017-08-18 07:13 | Electrocardiograph Report ---
[address] [address] Test Date: 2017-08-17 Pat Name: Yari Manning Department: 102 Room: 3A14 Gender: F [employer] Librarian: Ekp : 1980 Requested By: Julianne Mays Order Number: [id number] Reading MD: Miles Kolb Measurements Intervals [place] Rate: 98 P: 61 VA: 181 QRS: 23 QRSD: 82 T: 32 QT: 340 QTc: 395 Interpretive Statements SINUS RHYTHM Electronically Signed On 08-18-2017 7:12:30 EDT by Miles Kolb
[2017-08-18] MEDS: Ketorolac 15 MG/ML VIAL IVP PRN ×3 (07:20→23:34)
[2017-08-18] MEDS: cefTRIAXone 1,000 MG in Water for inj. (sterile) 20 ML 10 ML IVP SCH (07:27)
[2017-08-18] MEDS ORDERED: Ondansetron 4 MG/2 ML VIAL IVP PRN (10:12)
--- NOTE | 2017-08-18 10:12 | Internal Med Progress Note ---
Date of Encounter: 08/18/17 Time of Encounter: 09:40 - Assessment and plan (1) Sepsis Current Visit: Yes Status: Acute Assessment and plan: With Escherichia coli due to acute urinary tract infection. Sensitive to ceftriaxone. Will continue ceftriaxone. Repeat blood cultures. Monitor vital signs. Moderate risk for complications. CT scan of the abdomen and pelvis does not show any acute abnormalities. Qualifiers: Sepsis type: Escherichia coli Qualified Code(s): A41.51 - Sepsis due to Escherichia coli [E. coli] (2) UTI (urinary tract infection) Current Visit: Yes Status: Acute Assessment and plan: Continue ceftriaxone to treat Escherichia coli sepsis from UTI Qualifiers: Urinary tract infection type: acute cystitis Hematuria presence: without hematuria Qualified Code(s): N30.00 - Acute cystitis without hematuria (3) Nausea Current Visit: Yes Status: Acute Assessment and plan: Symptomatic treatment. Patient on Zofran (4) Hypertension Current Visit: Yes Status: Chronic Assessment and plan: Blood pressure is well controlled Qualifiers: Hypertension type: essential hypertension Qualified Code(s): I10 - Essential (primary) hypertension (5) DVT prophylaxis Current Visit: Yes Status: Acute (6) Hypokalemia Current Visit: Yes Status: Acute Assessment and plan: Remains hypokalemic. We will replete (7) Bacteremia Current Visit: Yes Status: Acute (8) Hypomagnesemia Current Visit: Yes Status: Acute Assessment and plan: Supplemented (9) Hypophosphatemia Current Visit: Yes Status: Acute Assessment and plan: Supplemented. Will recheck in AM - Time Spent With Patient Total time spent is greater than 50% in coordination of care (as documented) at patient's floor/unit and/or counseling patient: - Subjective Interval history: Patient is awake and alert. Complains of malaise and pain in right subcostal and costovertebral region. No radiation. No new episodes of fever overnight. No dysuria or hematuria. - Constitutional Vitals: Temp Pulse Resp BP Pulse Ox 98.4 F 99 16 121/86 99 08/18/17 07:25 08/18/17 07:25 08/18/17 07:25 08/18/17 07:25 08/18/17 07:25 General appearance: Present: cooperative, mild distress, A&O X 3, pleasant, answers questions appropriately - Respiratory Respiratory exam: Present: CTAB. Absent: accessory muscle use, rales, rhonchi, wheezes - Cardiovascular Cardiovascular exam: Present: RRR, +S1, +S2. Absent: diastolic murmur, gallop, rubs, systolic murmur - GI/Abdominal GI/Abdominal exam: Present: normal bowel sounds, soft, no peritoneal signs. Absent: distended, tenderness - Back Exam Back exam: Present: CVA tenderness (R) - Neurological Exam Neurological exam: Present: CN II-XII intact, oriented X3, no focal deficits. Absent: pronater drift, facial droop, speech deficit - Skin Skin exam: Present: dry, intact Internal Medicine: Result - Labs CBC & Chem 7: 08/18/17 04:09 08/18/17 04:09 Labs: Short CBC 08/18/17 Range/Units 04:09 WBC 3.6 L (4.3-11.1) K/mcL Hgb 9.3 L D (11.5-15.4) g/dL Hct 27.3 L (35.3-44.9) % Plt Count 134 L (140-400) K/mcL Neutrophils # 2.7 (1.6-8.9) K/mcL BMP 08/18/17 04:09 Sodium 136 Potassium 2.7 L Chloride 107 Carbon Dioxide 21 L BUN 4 L Creatinine 0.56 L Glucose 108 H Calcium 7.4 L Liver Function 08/18/17 Range/Units 04:09 Total Bilirubin 0.3 (0.3-1.0) mg/dL AST 33 (13-39) Units/L ALT 16 (7-52) Units/L Alkaline Phosphatase 61 (34-104) Units/L Albumin 2.7 L (3.5-5.7) g/dL - ABG Interpretation ABG results: PT/INR, D-dimer PT 10.6 Seconds (9.4-12.1) 08/17/17 18:37 Consult Discharge Plan - Plan Referrals: Meg Wise MD [Primary Care Provider] -
[2017-08-18] MEDS: Ringers Solution, Lactated 1,000 ML IVC SCH ×2 (11:26→20:44)
[2017-08-18] MEDS: OXYCODONE Oral CONC 10 MG/0.5 ML ORAL.SYG SL PRN (16:59)
[2017-08-18] MEDS: Acetaminophen/Butalbital/CaffeineTABLET PO PRN (17:58)
[2017-08-19] MEDS: Acetaminophen/Butalbital/CaffeineTABLET PO PRN ×2 (03:38→13:24)
[2017-08-19 05:31] LABS: Basophils % 0.3 %; Hematocrit 25.8 % (35.3-44.9); Hemoglobin 8.8 g/dL (11.5-15.4); Immature Granulocytes % 0.3 % (0-4); Lymphocytes # 0.9 K/mcL (0.6-4.6); Lymphocytes % 30.2 %; Mean Corpuscular HGB Conc 34.1 g/dL (31.6-35.5); Mean Corpuscular Hemoglobin 34.2 pg (28.0-33.3); Mean Corpuscular Volume 100.4 fL (83.0-100.0); Mean Platelet Volume 9.5 fL (9.4-12.4); Monocytes # 0.3 K/mcL (0.0-1.3); Monocytes % 8.5 %; Neutrophils # 1.8 K/mcL (1.6-8.9); Platelet Count 136 K/mcL (140-400); Red Blood Count 2.57 M/mcL (3.82-4.97); Segmented Neutrophils % 59.7 %
[2017-08-19 05:50] LABS: BUN/Creatinine Ratio 10 (6-26); Blood Urea Nitrogen 6 mg/dL (6-20); Calcium 8.4 mg/dL (8.6-10.3); Carbon Dioxide 22 mEq/L (23-29); Chloride 108 mEq/L (98-107); Glucose 88 mg/dL (70-105); Magnesium 1.6 mg/dL (1.6-2.6); Osmolality,Calculated 279 (280-300); Phosphorous 3.2 mg/dL (2.7-4.5); Potassium 3.8 mEq/L (3.5-5.1); Sodium 136 mEq/L (136-145); eGFR For African Americans > 60 (> 60); eGFR For Non-African Americans > 60 (> 60)
[2017-08-19] MEDS: *HR* Heparin 5,000 UNIT/ML VIAL SQ SCH ×2 (06:21→18:46)
[2017-08-19] MEDS: OXYCODONE Oral CONC 10 MG/0.5 ML ORAL.SYG SL PRN ×3 (07:22→13:22)
[2017-08-19] MEDS: Ringers Solution, Lactated 1,000 ML IVC SCH (07:23)
[2017-08-19] MEDS ORDERED: Ringers Solution, Lactated 1,000 ML IVC SCH ×2 (08:55→19:11)
[2017-08-19] MEDS: diazePAM 5 MG TABLET PO SCH ×2 (09:55→20:50)
[2017-08-19] MEDS: cefTRIAXone 1,000 MG in Water for inj. (sterile) 20 ML 10 ML IVP SCH (09:56)
[2017-08-19] MEDS: Ketorolac 15 MG/ML VIAL IVP PRN ×2 (10:03→18:45)
--- NOTE | 2017-08-19 14:36 | Internal Med Progress Note ---
Date of Encounter: 08/19/17 Time of Encounter: 14:34 - Assessment and plan (1) Sepsis Current Visit: Yes Status: Acute Assessment and plan: Repeat blood cultures are negative currently. Initial set of blood cultures positive for Escherichia coli sensitive to ceftriaxone. Continue ceftriaxone. Possibly from acute pyelonephritis although initial CT scan does not show any acute issues. Qualifiers: Sepsis type: Escherichia coli Qualified Code(s): A41.51 - Sepsis due to Escherichia coli [E. coli] (2) UTI (urinary tract infection) Current Visit: Yes Status: Acute Assessment and plan: Continue current antibiotics. Qualifiers: Urinary tract infection type: acute pyelonephritis Qualified Code(s): N10 - Acute pyelonephritis (3) Nausea Current Visit: Yes Status: Acute Assessment and plan: Continue empiric treatment with antiemetics. (4) Hypertension Current Visit: Yes Status: Chronic Assessment and plan: Blood pressure is elevated this morning. Chest heaviness possibly related to this. Will resume lisinopril/hydrochlorothiazide. Monitor blood pressure closely. Qualifiers: Hypertension type: essential hypertension Qualified Code(s): I10 - Essential (primary) hypertension (5) Hypokalemia Current Visit: Yes Status: Acute Assessment and plan: Improved with replacement. (6) Bacteremia Current Visit: Yes Status: Acute (7) Hypomagnesemia Current Visit: Yes Status: Resolved (8) Hypophosphatemia Current Visit: Yes Status: Resolved (9) DVT prophylaxis Current Visit: Yes Status: Acute Assessment and plan: Continue heparin subcutaneous - Time Spent With Patient Total time spent is greater than 50% in coordination of care (as documented) at patient's floor/unit and/or counseling patient: - Subjective Interval history: Patient continues to have right upper quadrant and subcostal pain. Also reported chest heaviness earlier this morning that lasted for a brief period. At that time her blood pressure was very high. Pain has now resolved. She reported that during that time she felt that she could not catch her breath and was wheezing. She does not have a history of COPD or asthma. - Constitutional Vitals: Temp Pulse Resp BP Pulse Ox 98.7 F 113 17 120/79 94 08/19/17 10:41 08/19/17 10:41 08/19/17 10:41 08/19/17 10:41 08/19/17 10:41 General appearance: Present: cooperative, mild distress, A&O X 3, pleasant, answers questions appropriately - Neck Neck exam general surgery: Present: supple, trachea midline. Absent: lymphadenopathy - Respiratory Respiratory exam: Present: chest wall tenderness (Right lower ribs), CTAB. Absent: accessory muscle use, rales, rhonchi, wheezes - Cardiovascular Cardiovascular exam: Present: RRR, +S1, +S2. Absent: diastolic murmur, gallop, rubs, systolic murmur - GI/Abdominal GI/Abdominal exam: Present: normal bowel sounds, soft, no peritoneal signs. Absent: distended, tenderness - Extremities Exam Extremities exam: Present: warm, radial pulses palpable and symmetrical. Absent : calf tenderness, cyanotic, pedal edema - Neurological Exam Neurological exam: Present: CN II-XII intact, oriented X3, no focal deficits. Absent: facial droop, speech deficit Internal Medicine: Result - Labs CBC & Chem 7: 08/19/17 05:12 08/19/17 05:12 Labs: Short CBC 08/19/17 Range/Units 05:12 WBC 3.1 L (4.3-11.1) K/mcL Hgb 8.8 L (11.5-15.4) g/dL Hct 25.8 L (35.3-44.9) % Plt Count 136 L (140-400) K/mcL Neutrophils # 1.8 (1.6-8.9) K/mcL BMP 08/19/17 05:12 Sodium 136 Potassium 3.8 Chloride 108 H Carbon Dioxide 22 L BUN 6 Creatinine 0.59 L Glucose 88 Calcium 8.4 L - ABG Interpretation ABG results: PT/INR, D-dimer PT 10.6 Seconds (9.4-12.1) 08/17/17 18:37 Consult Discharge Plan - Plan Referrals: Meg Wise MD [Primary Care Provider] - 08/28/17 3:00 pm
[2017-08-19] MEDS ORDERED: Azithromycin 500 MG in D5% in Water 250 ML IVPB SCH (19:00)
[2017-08-19] MEDS: *HR* FentaNYL (PF) 100 MCG/2 ML VIAL IVP PRN (20:49)
[2017-08-19] MEDS: Piperacillin/Tazobactam 3.375 GM in 0.9 % Sodium Chloride Mini Bag 100 ML IVPB SCH (20:50)
[2017-08-19] MEDS: Levofloxacin 750 MG/150 ML 750 MG/150 ML BAG IVPB SCH (20:50)
[2017-08-19] MEDS ORDERED: Ketorolac 30 MG/ML VIAL IVP PRN (21:40)
[2017-08-20] MEDS ORDERED: *HR* Labetalol 20 MG/4 ML SYRINGE IVP ONE (00:49)
[2017-08-20] MEDS ORDERED: Acetaminophen/Aspirin/Caffeine TABLET PO ONE (00:49)
[2017-08-20] MEDS: *HR* FentaNYL (PF) 100 MCG/2 ML VIAL IVP PRN ×4 (01:03→13:46)
[2017-08-20] MEDS: Piperacillin/Tazobactam 3.375 GM in 0.9 % Sodium Chloride Mini Bag 100 ML IVPB SCH ×3 (03:45→18:54)
[2017-08-20 05:21] LABS: % Iron Saturation 10 % (15-50); BUN/Creatinine Ratio 9 (6-26); Blood Urea Nitrogen 5 mg/dL (6-20); Calcium 8.9 mg/dL (8.6-10.3); Carbon Dioxide 22 mEq/L (23-29); Chloride 106 mEq/L (98-107); Ferritin 266 ng/ml (10-120); Glucose 86 mg/dL (70-105); Iron 20 mcg/dL (50-170); Osmolality,Calculated 279 (280-300); Potassium 3.6 mEq/L (3.5-5.1); Sodium 136 mEq/L (136-145); Transferrin 144 mg/dL (203-362); eGFR For African Americans > 60 (> 60); eGFR For Non-African Americans > 60 (> 60)
[2017-08-20] MEDS: *HR* Heparin 5,000 UNIT/ML VIAL SQ SCH ×2 (05:23→17:07)
[2017-08-20 05:46] LABS: Basophils % 0.2 %; Eosinophils % 0.8 %; Hematocrit 27.5 % (35.3-44.9); Hemoglobin 9.5 g/dL (11.5-15.4); Immature Granulocytes % 0.4 % (0-4); Lymphocytes % 19.6 %; Mean Corpuscular HGB Conc 34.5 g/dL (31.6-35.5); Mean Corpuscular Hemoglobin 33.9 pg (28.0-33.3); Mean Corpuscular Volume 98.2 fL (83.0-100.0); Monocytes # 0.5 K/mcL (0.0-1.3); Monocytes % 10.1 %; Red Cell Distribution Width 12.8 % (11.5-14.5); Segmented Neutrophils % 68.9 %
[2017-08-20 05:51] LABS: Neutrophils # 3.7 K/mcL (1.6-8.9); Platelet Count 231 K/mcL (140-400)
[2017-08-20] MEDS: diazePAM 5 MG TABLET PO SCH ×2 (08:06→20:55)
[2017-08-20] MEDS: Acetaminophen/Butalbital/CaffeineTABLET PO PRN (08:06)
[2017-08-20] MEDS ORDERED: Furosemide 40 MG/4 ML VIAL IVP STA (08:44)
[2017-08-20] MEDS: *HR* OxyCODONE/APAP 10/325 TABLET PO PRN ×2 (11:02→17:05)
--- NOTE | 2017-08-20 11:58 | Internal Med Progress Note ---
Date of Encounter: 08/20/17 Time of Encounter: 08:30 - Assessment and plan (1) Sepsis Current Visit: Yes Status: Acute Assessment and plan: Repeat cultures have been negative. CT scan and chest x-ray done yesterday shows bilateral multifocal pneumonia. Could be related to Escherichia coli but broadened antibiotic coverage as patient has not improved clinically. We will continue Zosyn and Levaquin. No signs of abscess on CT scan. Qualifiers: Sepsis type: Escherichia coli Qualified Code(s): A41.51 - Sepsis due to Escherichia coli [E. coli] (2) Pneumonia Current Visit: Yes Status: Suspected Assessment and plan: Multifocal pneumonia. Related to sepsis from Escherichia coli. On Zosyn and Levaquin. Qualifiers: Pneumonia type: due to Escherichia coli Laterality: bilateral Lung location: unspecified part of lung Qualified Code(s): J15.5 - Pneumonia due to Escherichia coli (3) UTI (urinary tract infection) Current Visit: Yes Status: Acute Assessment and plan: With Escherichia coli. Continue current antibiotics Qualifiers: Urinary tract infection type: acute pyelonephritis Qualified Code(s): N10 - Acute pyelonephritis (4) Nausea Current Visit: Yes Status: Acute Assessment and plan: Treat symptomatically. (5) Hypertension Current Visit: Yes Status: Chronic Assessment and plan: Intermittently elevated. Continue lisinopril/hydrochlorothiazide. Use hydralazine as needed for systolic blood pressure greater than 160 Qualifiers: Hypertension type: essential hypertension Qualified Code(s): I10 - Essential (primary) hypertension (6) Hypokalemia Current Visit: Yes Status: Acute Assessment and plan: Improved. (7) Bacteremia Current Visit: Yes Status: Acute Assessment and plan: With Escherichia coli. Improving. Repeat blood cultures have been negative so far. (8) Hypomagnesemia Current Visit: Yes Status: Resolved (9) Hypophosphatemia Current Visit: Yes Status: Resolved (10) DVT prophylaxis Current Visit: Yes Status: Acute Assessment and plan: On subcutaneous heparin (11) Chest pain Current Visit: Yes Status: Acute Assessment and plan: Pleuritic chest pain likely related to multifocal pneumonia. Treat symptomatically. Incentive spirometry. Has mild bibasilar pleural effusion. No signs of empyema at this time. Likely due to fluids. Qualifiers: Chest pain type: pleurodynia Qualified Code(s): R07.81 - Pleurodynia (12) Pulmonary edema Current Visit: Yes Status: Acute Assessment and plan: Due to fluid overload from IV fluids. IV fluids have been stopped. Will give Lasix. Follow up with chest x-ray tomorrow. Qualifiers: Chronicity: acute Qualified Code(s): J81.0 - Acute pulmonary edema - Time Spent With Patient Total time spent is greater than 50% in coordination of care (as documented) at patient's floor/unit and/or counseling patient: - Subjective Interval history: Patient complaining of right-sided pleuritic pain radiating across her chest and to her back. Has also been requiring supplemental oxygen. Feels short of breath especially when lying down flat. Does have cough now. No sputum production. No fever or chills reported overnight. - Constitutional Vitals: Temp Pulse Resp BP Pulse Ox 98.4 F 104 16 129/89 93 08/20/17 10:18 08/20/17 10:18 08/20/17 10:18 08/20/17 10:18 08/20/17 10:18 General appearance: Present: cooperative, mild distress, A&O X 3, pleasant, answers questions appropriately - Neck Neck exam general surgery: Present: supple, trachea midline. Absent: lymphadenopathy - Respiratory Respiratory exam: Present: chest wall tenderness (Right lower). Absent: accessory muscle use, rales, rhonchi, wheezes Additional comments: Bibasal crackles - Cardiovascular Cardiovascular exam: Present: RRR, +S1, +S2. Absent: diastolic murmur, gallop, rubs, systolic murmur - GI/Abdominal GI/Abdominal exam: Present: normal bowel sounds, soft, no peritoneal signs. Absent: distended, tenderness - Extremities Exam Extremities exam: Present: warm, radial pulses palpable and symmetrical. Absent : calf tenderness, cyanotic, pedal edema - Neurological Exam Neurological exam: Present: CN II-XII intact, oriented X3, no focal deficits, strengths equal and symetr throughout. Absent: facial droop, speech deficit - Skin Skin exam: Present: dry, intact Internal Medicine: Result - Labs CBC & Chem 7: 08/20/17 05:31 08/20/17 04:14 Labs: Short CBC 08/20/17 Range/Units 05:31 WBC 5.3 D (4.3-11.1) K/mcL Hgb 9.5 L (11.5-15.4) g/dL Hct 27.5 L (35.3-44.9) % Plt Count 231 D (140-400) K/mcL Neutrophils # 3.7 (1.6-8.9) K/mcL BMP 08/20/17 04:14 Sodium 136 Potassium 3.6 Chloride 106 Carbon Dioxide 22 L BUN 5 L Creatinine 0.57 L Glucose 86 Calcium 8.9 Cardiac Enzymes 08/19/17 Range/Units 19:37 Troponin I < 0.03 (< 0.04) ng/mL - ABG Interpretation ABG results: PT/INR, D-dimer PT 10.6 Seconds (9.4-12.1) 08/17/17 18:37 - Impressions Impressions Chest X-Ray 08/19/17 10:10 IMPRESSION: Patchy airspace and interstitial opacities in the right lung suspicious for pneumonia. D/ / Nhi Willard MD / Nhi Willard MD Interpreting Provider: Nhi Willard MD Abdomen Ultrasound 08/19/17 14:00 IMPRESSION: 1. Trace pericholecystic fluid. No other ultrasound findings to suggest cholecystitis, which is felt to be unlikely. 2. Minimal right pleural effusion, new since the recent CT abdomen exam. D/ / Carlos Bello MD / Carlos Bello MD Interpreting Provider: Carlos Bello MD Chest CTA 08/19/17 19:00 IMPRESSION: No CT evidence pulmonary embolism. Small bilateral pleural effusions with bilateral multifocal airspace disease most compatible with pneumonia. D/ / Paula García Cha, MD / Paula García Cha, MD Interpreting Provider: Paula García Cha, MD Chest X-Ray 08/20/17 03:58 IMPRESSION: Worsening pulmonary edema. D/ / Kenneth Gillis MD / Kenneth Gillis MD Interpreting Provider: Kenneth Gillis MD Consult Discharge Plan - Plan Referrals: Meg Wise MD [Primary Care Provider] - 08/28/17 3:00 pm
--- NOTE | 2017-08-20 15:47 | Electrocardiograph Report ---
[address] [place], [place] [address] Test Date: 2017-08-19 Pat Name: Yari Manning Department: 115 Room: 3A14 Gender: Personal Lines Agent: : [id number] Requested By: Jarred Hayes Order Number: [id number] Reading MD: Shmuel Sawyer Measurements Intervals [place] Rate: 123 P: 62 [place]: 146 QRS: 27 QRSD: 73 T: 28 QT: 276 QTc: 349 Interpretive Statements SINUS TACHYCARDIA SEPTAL MYOCARDIAL INFARCTION, PROBABLY OLD Electronically Signed On 08-20-2017 15:45:54 EDT by Shmuel Sawyer
[2017-08-20] MEDS: Levofloxacin 750 MG/150 ML 750 MG/150 ML BAG IVPB SCH (17:05)
[2017-08-20] MEDS: OXYCODONE Oral CONC 10 MG/0.5 ML ORAL.SYG SL PRN (20:55)
[2017-08-21] MEDS: *HR* OxyCODONE/APAP 10/325 TABLET PO PRN ×3 (00:34→13:30)
[2017-08-21] MEDS: Piperacillin/Tazobactam 3.375 GM in 0.9 % Sodium Chloride Mini Bag 100 ML IVPB SCH ×2 (03:51→11:07)
[2017-08-21] MEDS: Acetaminophen/Butalbital/CaffeineTABLET PO PRN (03:57)
[2017-08-21] MEDS: OXYCODONE Oral CONC 10 MG/0.5 ML ORAL.SYG SL PRN ×2 (03:58→10:09)
[2017-08-21 05:43] LABS: Basophils % 0.5 %; Eosinophils # 0.1 K/mcL (0.0-0.6); Eosinophils % 1.6 %; Hematocrit 27.5 % (35.3-44.9); Hemoglobin 9.4 g/dL (11.5-15.4); Immature Granulocytes % 0.7 % (0-4); Lymphocytes # 1.6 K/mcL (0.6-4.6); Lymphocytes % 28.6 %; Mean Corpuscular HGB Conc 34.2 g/dL (31.6-35.5); Mean Corpuscular Hemoglobin 34.2 pg (28.0-33.3); Mean Platelet Volume 9.3 fL (9.4-12.4); Monocytes # 0.4 K/mcL (0.0-1.3); Monocytes % 7.4 %; Neutrophils # 3.5 K/mcL (1.6-8.9); Platelet Count 261 K/mcL (140-400); Red Blood Count 2.75 M/mcL (3.82-4.97); Red Cell Distribution Width 13.2 % (11.5-14.5); Segmented Neutrophils % 61.2 %
[2017-08-21 05:55] LABS: BUN/Creatinine Ratio 9 (6-26); Blood Urea Nitrogen 6 mg/dL (6-20); Calcium 8.9 mg/dL (8.6-10.3); Carbon Dioxide 25 mEq/L (23-29); Chloride 103 mEq/L (98-107); Glucose 86 mg/dL (70-105); Osmolality,Calculated 281 (280-300); Potassium 3.8 mEq/L (3.5-5.1); Sodium 137 mEq/L (136-145); eGFR For African Americans > 60 (> 60); eGFR For Non-African Americans > 60 (> 60)
[2017-08-21] MEDS: *HR* Heparin 5,000 UNIT/ML VIAL SQ SCH (06:14)
[2017-08-21 06:52] LABS: Platelet Estimate Normal (Normal)
[2017-08-21] MEDS: diazePAM 5 MG TABLET PO SCH (08:56)
[2017-08-21 10:34] VITALS: BP 137/91
--- NOTE | 2017-08-21 11:09 | Discharge Summary ---
- NOTES TO OUTPATIENT PROVIDER Notes to Outpatient Provider: Patient admitted with sepsis from gram-negative bacteremia-Escherichia coli that is pansensitive from possible acute pyelonephritis. She was treated with IV antibiotics but developed chest pain and was then diagnosed with multifocal pneumonia. Her antibiotic regimen was adjusted to treat pneumonia better and since then she has slowly been recovering well. Her repeat blood cultures have been negative. She is stable to be discharged home on oral antibiotics to complete 14 day treatment course. Orders not resulted at time of discharge: Pending orders 08/18/17 10:43 Culture,Blood [BC] Routine Date of Encounter: 08/21/17 Time of Encounter: 08:30 - Discharge Diagnosis (1) Sepsis Priority: Primary Status: Acute Qualifiers: Sepsis type: Escherichia coli Qualified Code(s): A41.51 - Sepsis due to Escherichia coli [E. coli] (2) Pneumonia Priority: Secondary Status: Acute Qualifiers: Pneumonia type: due to Escherichia coli Laterality: bilateral Lung location: unspecified part of lung Qualified Code(s): J15.5 - Pneumonia due to Escherichia coli (3) UTI (urinary tract infection) Priority: Secondary Status: Acute Qualifiers: Urinary tract infection type: acute pyelonephritis Qualified Code(s): N10 - Acute pyelonephritis (4) Nausea Priority: Secondary Status: Acute (5) Hypertension Priority: Secondary Status: Chronic Qualifiers: Hypertension type: essential hypertension Qualified Code(s): I10 - Essential (primary) hypertension (6) Hypokalemia Priority: Secondary Status: Acute (7) Bacteremia Priority: Secondary Status: Acute (8) Hypomagnesemia Priority: Secondary Status: Resolved (9) Hypophosphatemia Priority: Secondary Status: Resolved (10) DVT prophylaxis Priority: Secondary Status: Acute (11) Chest pain Priority: Secondary Status: Acute Qualifiers: Chest pain type: pleurodynia Qualified Code(s): R07.81 - Pleurodynia (12) Pulmonary edema Priority: Secondary Status: Resolved Qualifiers: Chronicity: acute Qualified Code(s): J81.0 - Acute pulmonary edema Hospital course: Ms. Manning is a 37 year old female patient admitted with sepsis from gram- negative bacteremia-Escherichia coli that is sensitive to cephalosporins and fluoroquinolones from possible acute pyelonephritis. She was treated with IV antibiotics but developed chest pain and was then diagnosed with multifocal pneumonia. Her antibiotic regimen was adjusted to treat pneumonia better and since then she has slowly been recovering well. Her repeat blood cultures have been negative. She is stable to be discharged home on oral antibiotics to complete 14 day treatment course. Discharge discussed with: patient, nurse - Time Spent with Patient Total time spent providing and/or coordinating discharge services: Greater than 30 minutes (32 min) - Discharge Medications Prescriptions: OxyCODONE/APAP 10/325 [Percocet 10/325 MG] 1 each PO Q6HR PRN 5 Days #14 tablet PRN Reason: Moderate Pain Ferrous Sulfate 325 mg PO BIDWM #60 tablet levoFLOXacin [Levaquin] 750 mg PO DAILY #12 tablet Potassium Chloride 10 meq PO DAILY #30 tab.er.prt Home Medications: Lisinopril/Hydrochlorothiazide [Zestoretic 20-25 mg Tablet] 1 tab PO DAILY #20 tablet 06/04/16 [Rx] diazePAM [Valium] 5 mg PO BID 08/17/17 [History] Omeprazole [PriLOSEC] 40 mg PO DAILY 08/19/17 [History] Ferrous Sulfate 325 mg PO BIDWM #60 tablet 08/21/17 [Rx] OxyCODONE/APAP 10/325 [Percocet 10/325 MG] 1 each PO Q6HR PRN 5 Days #14 tablet 08/21/17 [Rx] Potassium Chloride 10 meq PO DAILY #30 tab.er.prt 08/21/17 [Rx] levoFLOXacin [Levaquin] 750 mg PO DAILY #12 tablet 08/21/17 [Rx] Allergies/Adverse Reactions: 3 Allergy/AdvReac Type Severity Reaction Status Date / Time No Known Allergies Allergy Verified 08/25/16 12:01 Date of admission: 08/18/17 01:00 Primary care physician: Meg Wise MD Discharging clinician: Cally Jay Anticipated date of discharge: 08/21/17 - Constitutional Vitals: Temp Pulse Resp BP Pulse Ox 98.3 F 100 18 137/91 95 08/21/17 10:33 08/21/17 10:33 08/21/17 10:33 08/21/17 10:33 08/21/17 10:33 General appearance: Present: cooperative, mild distress, A&O X 3, pleasant, answers questions appropriately - Neck Neck exam general surgery: Present: supple, trachea midline. Absent: lymphadenopathy - Respiratory Respiratory exam: Present: chest wall tenderness (right lower chest wall), CTAB. Absent: accessory muscle use, rales, rhonchi, wheezes - Cardiovascular Cardiovascular exam: Present: RRR, +S1, +S2. Absent: diastolic murmur, gallop, rubs, systolic murmur - GI/Abdominal GI/Abdominal exam: Present: normal bowel sounds, soft, no peritoneal signs. Absent: distended, tenderness - Extremities Exam Extremities exam: Present: warm, radial pulses palpable and symmetrical. Absent : calf tenderness, cyanotic, pedal edema - Patient Status Disposition: Home, Self-Care Condition: Good Functional capacity at discharge: independent ambulation Overall status at discharge: patient is progressing back to baseline - Discharge Instructions Instructions: Chest Pain (DC), Urinary Tract Infection in Women (DC), Sepsis ( DC), Chronic Hypertension (DC), Pneumonia (DC) Follow Up With: Meg Wise MD [Primary Care Provider] - 08/28/17 3:00 pm Forms: Work/School Release - Diet and Activity Activity: increase activity as tolerated Diet: advance to your usual diet, low fat, low cholesterol, low salt diet
== END 2017-08-21 15:05 | disposition home or self-care (01) | DRG 871 ==
LOC: 3ANU 17:39 → EMEROO 17:39 → 3ANU 21:17 → SUATTDRO 08-18 01:00
PROVIDERS: ADMIT Internal Medicine; ATTEND Internal Medicine

== ENCOUNTER 2019-10-01 10:38 | Inpatient (IN) ==
[2019-10-01] MEDS ORDERED: 0.9 % Sodium Chloride 1,000 ML IVC ONE ×3 (11:00→22:45)
[2019-10-01] MEDS ORDERED: Isovue-370 500 ML BOTTLE IVP ONE ×2 (11:06→11:50)
[2019-10-01 11:31] LABS: Amphetamine Screen,Urine Negative ng/mL (Cutoff=1000); Barbiturate Screen,Urine Negative ng/mL (Cutoff=200); Benzodiazepines Screen,Urine Negative ng/mL (Cutoff=200); Cannabinoid Screen,Urine Negative ng/mL (Cutoff = 50); Cocaine Screen,Urine Negative ng/mL (Cutoff= 300); Opiate Screen,Urine Negative ng/mL (Cutoff=300); Phencyclidine Screen,Urine Negative ng/mL (Cutoff=25)
[2019-10-01 11:45] LABS: Basophils % 0.4 %; Hematocrit 36.8 % (35.3-44.9); Hemoglobin 12.5 g/dL (11.5-15.4); Immature Granulocytes % 0.4 % (0-4); Lymphocytes # 1.3 K/mcL (0.6-4.6); Mean Corpuscular Hemoglobin 35.6 pg (28.0-33.3); Mean Corpuscular Volume 104.8 fL (83.0-100.0); Mean Platelet Volume 9.2 fL (9.4-12.4); Monocytes # 0.3 K/mcL (0.0-1.3); Monocytes % 6.6 %; Neutrophils # 3.5 K/mcL (1.6-8.9); Platelet Count 345 K/mcL (140-400); Red Blood Count 3.51 M/mcL (3.82-4.97); Red Cell Distribution Width 14.3 % (11.5-14.5); Segmented Neutrophils % 67.6 %; White Blood Count 5.1 K/mcL (4.3-11.1)
[2019-10-01 11:51] LABS: Bacteria,Urine Few per hpf (None-Few); Bilirubin,Urine Negative (Negative); Blood,Urine Negative (Negative); Clarity,Urine Clear (Clear); Color,Urine Colorless (Yellow); Glucose,Urine (UA) Normal (Normal); Ketones,Urine Negative (Negative); Leukocyte Esterase,Urine Negative (Negative); Nitrite,Urine Negative (Negative); PH,Urine 6.5 pH Units (5.0-8.0); Protein,Urine Negative (Neg-Trace); RBC,Urine 0-3 per hpf (0-3); Specific Gravity,Urine 1.014 (1.010-1.025); Squamous Epithelial Cell,Urine Few per hpf (None-Few); Urobilinogen,Urine Normal (Normal)
[2019-10-01 11:59] LABS: Alanine Aminotransferase 100 Units/L (7-52); Albumin 3.4 g/dL (3.5-5.7); Albumin/Globulin Ratio 0.9 (1.1-2.2); Alkaline Phosphatase 155 Units/L (34-104); Aspartate Amino Transferase 339 Units/L (13-39); BUN/Creatinine Ratio 9 (6-26); Bilirubin,Direct 0.1 mg/dL (0.0-0.2); Bilirubin,Indirect 0.7 mg/dL (0.0-1.0); Bilirubin,Total 0.8 mg/dL (0.3-1.0); Blood Urea Nitrogen 5 mg/dL (6-20); Calcium 9.2 mg/dL (8.6-10.3); Carbon Dioxide 23 mEq/L (23-29); Chloride 95 mEq/L (98-107); Glucose 92 mg/dL (70-105); Magnesium 1.6 mg/dL (1.6-2.6); Osmolality,Calculated 273 (280-300); Potassium 3.1 mEq/L (3.5-5.1); Sodium 133 mEq/L (136-145); Total Protein 7.2 g/dL (6.4-8.9); eGFR For African Americans > 60 (> 60); eGFR For Non-African Americans > 60 (> 60)
[2019-10-01 12:00] LABS: Globulin 3.8 g/dL (2.4-3.5); Lipase 363 Units/L (11-82); Troponin I < 0.03 ng/mL (< 0.04)
[2019-10-01] MEDS ORDERED: *HR* FentaNYL (PF) 100 MCG/2 ML VIAL IVP ONE (12:51)
[2019-10-01 13:25] LABS: INR 1.1; Prothrombin Time 12.5 Seconds (9.4-12.1)
[2019-10-01 13:27] LABS: Activated Partial Thrombo Time 26.9 Seconds (26.0-36.0)
[2019-10-01] MEDS ORDERED: Ondansetron 4 MG/2 ML VIAL IVP PRN (13:44)
[2019-10-01] MEDS ORDERED: Naloxone 0.4 MG/ML INJ IVP PRN (13:44)
[2019-10-01] MEDS ORDERED: Ringers Solution, Lactated 1,000 ML IVC SCH (13:45)
[2019-10-01] MEDS ORDERED: *HR* LORazepam 2 MG/ML VIAL IVP PRN ×2 (13:48→13:49)
[2019-10-01] MEDS ORDERED: D5% in Water 1,000 ML IVC PRN (13:49)
[2019-10-01] MEDS ORDERED: *HR* Dextrose 50 % in Water (Vial) 50 ML VIAL IVP PRN ×2 (13:49→22:43)
[2019-10-01] MEDS ORDERED: Dextrose Gel 15 GM/37.5 ML TUBE PO PRN ×2 (13:49)
[2019-10-01] MEDS ORDERED: Pantoprazole 40 MG VIAL IVP SCH (14:00)
[2019-10-01 14:37] LABS: Chol/HDL Ratio 3.5 (0-4.9); Cholesterol 229 mg/dL (< 200); HDL Cholesterol 65 mg/dL (40-59); Triglycerides 2275 mg/dL (< 150)
[2019-10-01] MEDS ORDERED: *HR* Labetalol 20 MG/4 ML SYRINGE IVP PRN (14:37)
[2019-10-01] MEDS ORDERED: Morphine Sulfate 2 MG/ML SYRINGE IVP ONE ×2 (14:38→23:27)
[2019-10-01] MEDS ORDERED: *HR* Heparin 5,000 UNIT/ML VIAL SQ SCH (18:00)
[2019-10-01] MEDS: Insulin LISPRO 300 UNITS/3 ML VIAL SQ SCH (18:19)
[2019-10-01] MEDS: *HR* LORazepam 2 MG/ML VIAL IVP PRN (19:41)
[2019-10-01] MEDS ORDERED: Gabapentin 100 MG CAPSULE PO SCH (21:00)
[2019-10-01] MEDS ORDERED: D5% in 0.9% NACL 1,000 ML IVC SCH (22:45)
[2019-10-01] MEDS ORDERED: Insulin Human Regular 100 UNIT in 0.9 % Sodium Chloride 100 ML IVC SCH (22:45)
[2019-10-02] MEDS: Insulin LISPRO 300 UNITS/3 ML VIAL SQ SCH (00:24)
[2019-10-02] MEDS: *HR* LORazepam 2 MG/ML VIAL IVP PRN (00:38)
[2019-10-02 01:23] LABS: Basophils % 0.2 %; Eosinophils % 0.6 %; Hematocrit 30.3 % (35.3-44.9); Immature Granulocytes % 0.2 % (0-4); Lymphocytes # 0.7 K/mcL (0.6-4.6); Lymphocytes % 14.4 %; Mean Corpuscular Hemoglobin 36.4 pg (28.0-33.3); Mean Corpuscular Volume 110.2 fL (83.0-100.0); Mean Platelet Volume 8.9 fL (9.4-12.4); Monocytes # 0.4 K/mcL (0.0-1.3); Monocytes % 7.8 %; Platelet Count 225 K/mcL (140-400); Red Blood Count 2.75 M/mcL (3.82-4.97); Red Cell Distribution Width 14.8 % (11.5-14.5); Segmented Neutrophils % 76.8 %; White Blood Count 4.9 K/mcL (4.3-11.1)
[2019-10-02 01:26] LABS: Neutrophils # 3.8 K/mcL (1.6-8.9)
[2019-10-02 01:44] LABS: Alanine Aminotransferase 78 Units/L (7-52); Albumin 2.9 g/dL (3.5-5.7); Albumin/Globulin Ratio 0.9 (1.1-2.2); Alkaline Phosphatase 118 Units/L (34-104); Aspartate Amino Transferase 218 Units/L (13-39); BUN/Creatinine Ratio 6 (6-26); Bilirubin,Total 0.9 mg/dL (0.3-1.0); Blood Urea Nitrogen 3 mg/dL (6-20); Calcium 7.5 mg/dL (8.6-10.3); Carbon Dioxide 20 mEq/L (23-29); Chloride 103 mEq/L (98-107); Globulin 3.1 g/dL (2.4-3.5); Glucose 83 mg/dL (70-105); Magnesium 1.1 mg/dL (1.6-2.6); Osmolality,Calculated 278 (280-300); Phosphorous 2.1 mg/dL (2.7-4.5); Potassium 3.1 mEq/L (3.5-5.1); Sodium 136 mEq/L (136-145); eGFR For African Americans > 60 (> 60); eGFR For Non-African Americans > 60 (> 60)
[2019-10-02] MEDS ORDERED: Insulin Human Regular 100 UNIT in 0.9 % Sodium Chloride 100 ML IVC SCH ×2 (01:53→03:37)
[2019-10-02 02:05] LABS: Macrocytosis Present (Not Present); Platelet Estimate Normal (Normal)
[2019-10-02 02:32] LABS: Hepatitis B Surface Antigen Nonreactive (Nonreactive)
[2019-10-02 03:00] LABS: Hepatitis B Core IgM Nonreactive (Nonreactive)
[2019-10-02 03:01] LABS: Hepatitis A Antibody IgM Nonreactive (Nonreactive); Hepatitis C Virus Antibody Nonreactive (Nonreactive)
[2019-10-02] MEDS ORDERED: Potassium Chloride 40 MEQ, Lidocaine 1% 2 ML in 0.9 % Sodium Chloride 500 ML IVPB ONE ×3 (03:18→16:35)
[2019-10-02] MEDS ORDERED: D5% in Water 1,000 ML IVC PRN (03:37)
[2019-10-02] MEDS ORDERED: *HR* Labetalol 20 MG/4 ML SYRINGE IVP PRN (03:37)
[2019-10-02] MEDS ORDERED: Dextrose Gel 15 GM/37.5 ML TUBE PO PRN ×2 (03:37)
[2019-10-02] MEDS ORDERED: Naloxone 0.4 MG/ML INJ IVP PRN (03:37)
[2019-10-02] MEDS ORDERED: *HR* LORazepam 2 MG/ML VIAL IVP PRN ×3 (03:37)
[2019-10-02] MEDS ORDERED: *HR* Dextrose 50 % in Water (Vial) 50 ML VIAL IVP PRN (03:37)
[2019-10-02] MEDS ORDERED: Isovue-370 500 ML BOTTLE IVP ONE (03:37)
[2019-10-02] MEDS ORDERED: Ondansetron 4 MG/2 ML VIAL IVP PRN (03:37)
[2019-10-02] MEDS: *HR* Dextrose 50 % in Water (Vial) 50 ML VIAL IVP PRN ×3 (04:52→11:45)
[2019-10-02] MEDS: *HR* Heparin 5,000 UNIT/ML VIAL SQ SCH ×2 (05:39→17:55)
[2019-10-02 06:09] LABS: BUN/Creatinine Ratio 6 (6-26); Blood Urea Nitrogen 3 mg/dL (6-20); Calcium 7.9 mg/dL (8.6-10.3); Carbon Dioxide 22 mEq/L (23-29); Chloride 104 mEq/L (98-107); Glucose 85 mg/dL (70-105); Osmolality,Calculated 278 (280-300); Sodium 136 mEq/L (136-145); eGFR For African Americans > 60 (> 60); eGFR For Non-African Americans > 60 (> 60)
[2019-10-02] MEDS ORDERED: Ringers Solution, Lactated 1,000 ML IVC SCH ×2 (07:30→07:43)
[2019-10-02] MEDS: Gabapentin 100 MG CAPSULE PO SCH ×3 (07:59→15:35)
[2019-10-02] MEDS: Fenofibrate 54 MG TABLET PO SCH (07:59)
[2019-10-02] MEDS: Pantoprazole 40 MG VIAL IVP SCH (08:01)
[2019-10-02] MEDS: D5% in 0.9% NACL 1,000 ML IVC SCH ×2 (08:11→15:59)
[2019-10-02] MEDS ORDERED: Potassium Phosphate 44 MEQ in 0.9 % Sodium Chloride 250 ML IVPB PRN (08:42)
[2019-10-02 09:50] LABS: Chol/HDL Ratio 2.7 (0-4.9)
[2019-10-02] MEDS ORDERED: methylPREDNISolone 125 MG/2 ML VIAL IVP ONE (10:54)
[2019-10-02] MEDS: *HR* HYDROmorphone 2 MG/ML SYRINGE IVP PRN ×3 (13:38→22:34)
[2019-10-02 14:10] LABS: Magnesium 2.1 mg/dL (1.6-2.6); Phosphorous 1.4 mg/dL (2.7-4.5)
[2019-10-02] MEDS: cefTRIAXone 1,000 MG in Water for inj. (sterile) 10 ML IVP SCH (15:34)
[2019-10-02] MEDS ORDERED: Furosemide 40 MG/4 ML VIAL IVP ONE (16:27)
[2019-10-02] MEDS ORDERED: Haloperidol Lactate 5 MG/ML VIAL IVP ONE (18:27)
[2019-10-02 20:44] LABS: Chol/HDL Ratio 2.6 (0-4.9)
[2019-10-02] MEDS ORDERED: 0.9 % Sodium Chloride 1,000 ML IVC ONE (23:47)
[2019-10-03 00:48] LABS: Hematocrit 28.3 % (35.3-44.9); Hemoglobin 9.3 g/dL (11.5-15.4); Immature Granulocytes % 0.4 % (0-4); Lymphocytes # 0.4 K/mcL (0.6-4.6); Lymphocytes % 8.2 %; Mean Corpuscular HGB Conc 32.9 g/dL (31.6-35.5); Mean Corpuscular Hemoglobin 36.6 pg (28.0-33.3); Mean Corpuscular Volume 111.4 fL (83.0-100.0); Mean Platelet Volume 9.5 fL (9.4-12.4); Monocytes # 0.2 K/mcL (0.0-1.3); Monocytes % 4.4 %; Neutrophils # 4.2 K/mcL (1.6-8.9); Platelet Count 181 K/mcL (140-400); Red Blood Count 2.54 M/mcL (3.82-4.97); Red Cell Distribution Width 14.6 % (11.5-14.5); White Blood Count 4.8 K/mcL (4.3-11.1)
[2019-10-03 01:14] LABS: Alanine Aminotransferase 60 Units/L (7-52); Albumin 2.8 g/dL (3.5-5.7); Albumin/Globulin Ratio 0.9 (1.1-2.2); Alkaline Phosphatase 105 Units/L (34-104); Aspartate Amino Transferase 126 Units/L (13-39); Bilirubin,Direct 0.3 mg/dL (0.0-0.2); Bilirubin,Indirect 0.4 mg/dL (0.0-1.0); Bilirubin,Total 0.7 mg/dL (0.3-1.0); Blood Urea Nitrogen < 2 mg/dL (6-20); C-Reactive Protein 49 mg/L (Less than 10); Calcium 7.4 mg/dL (8.6-10.3); Carbon Dioxide 19 mEq/L (23-29); Chloride 111 mEq/L (98-107); Globulin 3.1 g/dL (2.4-3.5); Glucose 154 mg/dL (70-105); Magnesium 1.6 mg/dL (1.6-2.6); Phosphorous 1.6 mg/dL (2.7-4.5); Potassium 4.3 mEq/L (3.5-5.1); Sodium 139 mEq/L (136-145); Total Protein 5.9 g/dL (6.4-8.9); eGFR For African Americans > 60 (> 60); eGFR For Non-African Americans > 60 (> 60)
[2019-10-03 01:27] LABS: Macrocytosis Present (Not Present); Platelet Estimate Normal (Normal)
[2019-10-03] MEDS: *HR* HYDROmorphone 2 MG/ML SYRINGE IVP PRN ×6 (02:51→23:05)
[2019-10-03] MEDS: *HR* Heparin 5,000 UNIT/ML VIAL SQ SCH ×2 (03:47→17:51)
[2019-10-03] MEDS: cefTRIAXone 1,000 MG in Water for inj. (sterile) 10 ML IVP SCH (07:36)
[2019-10-03] MEDS: Fenofibrate 54 MG TABLET PO SCH (07:36)
[2019-10-03] MEDS: Gabapentin 100 MG CAPSULE PO SCH ×3 (07:36→19:37)
[2019-10-03] MEDS: Pantoprazole 40 MG VIAL IVP SCH (07:36)
[2019-10-03] MEDS: *HR* FentaNYL PATCH 25 MCG PATCH TD SCH (10:03)
[2019-10-03] MEDS ORDERED: Cyanocobalamin (B-12) 1,000 MCG/ML VIAL SQ ONE (10:34)
[2019-10-03] MEDS ORDERED: Water for inj. (sterile) 20 ML IV ONE (15:17)
[2019-10-03] MEDS: MethylPREDNISolone 40 MG/ML VIAL IVP SCH (17:51)
[2019-10-04 01:13] LABS: Basophils % 0.2 %; Eosinophils # 0.1 K/mcL (0.0-0.6); Eosinophils % 1.4 %; Hematocrit 27.7 % (35.3-44.9); Hemoglobin 9.1 g/dL (11.5-15.4); Immature Granulocytes % 0.2 % (0-4); Lymphocytes # 1.2 K/mcL (0.6-4.6); Lymphocytes % 27.8 %; Mean Corpuscular HGB Conc 32.9 g/dL (31.6-35.5); Mean Corpuscular Hemoglobin 36.5 pg (28.0-33.3); Mean Corpuscular Volume 111.2 fL (83.0-100.0); Mean Platelet Volume 9.1 fL (9.4-12.4); Monocytes # 0.3 K/mcL (0.0-1.3); Monocytes % 5.8 %; Neutrophils # 2.8 K/mcL (1.6-8.9); Platelet Count 202 K/mcL (140-400); Red Blood Count 2.49 M/mcL (3.82-4.97); Red Cell Distribution Width 14.9 % (11.5-14.5); Segmented Neutrophils % 64.6 %; White Blood Count 4.3 K/mcL (4.3-11.1)
[2019-10-04 01:17] LABS: BUN/Creatinine Ratio 5 (6-26); Blood Urea Nitrogen 2 mg/dL (6-20); Calcium 8.1 mg/dL (8.6-10.3); Carbon Dioxide 21 mEq/L (23-29); Chloride 112 mEq/L (98-107); Glucose 83 mg/dL (70-105); Magnesium 1.6 mg/dL (1.6-2.6); Osmolality,Calculated 289 (280-300); Phosphorous 3.1 mg/dL (2.7-4.5); Potassium 3.4 mEq/L (3.5-5.1); Sodium 142 mEq/L (136-145); eGFR For African Americans > 60 (> 60); eGFR For Non-African Americans > 60 (> 60)
[2019-10-04 01:43] LABS: Anisocytosis 1+ (Not Present); Macrocytosis Present (Not Present); Platelet Estimate Normal (Normal)
[2019-10-04] MEDS: MethylPREDNISolone 40 MG/ML VIAL IVP SCH ×2 (05:12→16:44)
[2019-10-04] MEDS: *HR* Heparin 5,000 UNIT/ML VIAL SQ SCH ×2 (05:19→14:17)
[2019-10-04] MEDS: 0.9 % Sodium Chloride 1,000 ML IVC SCH ×2 (07:50)
[2019-10-04] MEDS: Gabapentin 100 MG CAPSULE PO SCH ×3 (07:51→19:29)
[2019-10-04] MEDS: Pantoprazole 40 MG VIAL IVP SCH (07:51)
[2019-10-04] MEDS: cefTRIAXone 1,000 MG in Water for inj. (sterile) 10 ML IVP SCH (07:51)
[2019-10-04] MEDS: *HR* HYDROmorphone 2 MG/ML SYRINGE IVP PRN ×4 (07:52→21:06)
[2019-10-04] MEDS: Fenofibrate 54 MG TABLET PO SCH (07:52)
[2019-10-04 08:09] LABS: Estimated Average Glucose 94 mg/dl; Hemoglobin A1C 4.9 %
[2019-10-04] MEDS ORDERED: 0.9 % Sodium Chloride 1,000 ML IVC SCH (11:30)
[2019-10-04] MEDS: amLODIPine 5 MG TABLET PO SCH (11:56)
[2019-10-04] MEDS: *HR* Labetalol 20 MG/4 ML SYRINGE IVP PRN ×2 (12:01→21:08)
[2019-10-04] MEDS: lisinopriL 20 MG TABLET PO SCH (17:07)
[2019-10-04] MEDS ORDERED: Furosemide 40 MG/4 ML VIAL IVP ONE (19:30)
[2019-10-05] MEDS: *HR* HYDROmorphone 2 MG/ML SYRINGE IVP PRN ×2 (01:14→07:28)
[2019-10-05 01:47] LABS: Alanine Aminotransferase 45 Units/L (7-52); Albumin 3.2 g/dL (3.5-5.7); Albumin/Globulin Ratio 0.9 (1.1-2.2); Alkaline Phosphatase 100 Units/L (34-104); Aspartate Amino Transferase 60 Units/L (13-39); BUN/Creatinine Ratio 6 (6-26); Bilirubin,Total 0.6 mg/dL (0.3-1.0); Blood Urea Nitrogen 2 mg/dL (6-20); Calcium 8.8 mg/dL (8.6-10.3); Carbon Dioxide 24 mEq/L (23-29); Chloride 105 mEq/L (98-107); Globulin 3.6 g/dL (2.4-3.5); Glucose 103 mg/dL (70-105); Magnesium 1.3 mg/dL (1.6-2.6); Osmolality,Calculated 282 (280-300); Phosphorous 2.2 mg/dL (2.7-4.5); Potassium 3.6 mEq/L (3.5-5.1); Sodium 138 mEq/L (136-145); Total Protein 6.8 g/dL (6.4-8.9); eGFR For African Americans > 60 (> 60); eGFR For Non-African Americans > 60 (> 60)
[2019-10-05] MEDS: *HR* Labetalol 20 MG/4 ML SYRINGE IVP PRN ×2 (04:38→23:49)
[2019-10-05] MEDS ORDERED: Ibuprofen 600 MG TABLET PO ONE (04:47)
[2019-10-05] MEDS: MethylPREDNISolone 40 MG/ML VIAL IVP SCH (05:03)
[2019-10-05] MEDS: *HR* Heparin 5,000 UNIT/ML VIAL SQ SCH ×2 (05:11→17:20)
[2019-10-05] MEDS: Gabapentin 100 MG CAPSULE PO SCH ×3 (07:28→20:36)
[2019-10-05] MEDS: Pantoprazole 40 MG VIAL IVP SCH ×2 (07:29→17:20)
[2019-10-05] MEDS: cefTRIAXone 1,000 MG in Water for inj. (sterile) 10 ML IVP SCH (07:29)
[2019-10-05] MEDS: amLODIPine 5 MG TABLET PO SCH (07:29)
[2019-10-05] MEDS: lisinopriL 20 MG TABLET PO SCH (07:29)
[2019-10-05] MEDS: Fenofibrate 54 MG TABLET PO SCH (07:29)
[2019-10-05] MEDS: *HR* HYDROmorphone PF 0.5 MG/0.5 ML SYRINGE IVP PRN ×3 (12:21→22:45)
[2019-10-05] MEDS ORDERED: Potassium Phosphate 44 MEQ in 0.9 % Sodium Chloride 250 ML IVPB ONE (12:39)
[2019-10-05] MEDS: predniSONE 20 MG TABLET PO SCH (17:19)
[2019-10-06 02:21] LABS: Eosinophils % 0.2 %; Hematocrit 32.7 % (35.3-44.9); Hemoglobin 10.9 g/dL (11.5-15.4); Immature Granulocytes % 0.2 % (0-4); Lymphocytes # 0.7 K/mcL (0.6-4.6); Lymphocytes % 15.8 %; Mean Corpuscular HGB Conc 33.3 g/dL (31.6-35.5); Mean Corpuscular Hemoglobin 35.9 pg (28.0-33.3); Mean Corpuscular Volume 107.6 fL (83.0-100.0); Monocytes # 0.2 K/mcL (0.0-1.3); Monocytes % 4.5 %; Neutrophils # 3.5 K/mcL (1.6-8.9); Platelet Count 250 K/mcL (140-400); Red Blood Count 3.04 M/mcL (3.82-4.97); Red Cell Distribution Width 14.6 % (11.5-14.5); Segmented Neutrophils % 79.3 %; White Blood Count 4.4 K/mcL (4.3-11.1)
[2019-10-06 02:41] LABS: Magnesium 1.5 mg/dL (1.6-2.6)
[2019-10-06 02:43] LABS: Alanine Aminotransferase 40 Units/L (7-52); Albumin 3.2 g/dL (3.5-5.7); Albumin/Globulin Ratio 0.8 (1.1-2.2); Alkaline Phosphatase 92 Units/L (34-104); Aspartate Amino Transferase 58 Units/L (13-39); BUN/Creatinine Ratio 7 (6-26); Bilirubin,Total 0.5 mg/dL (0.3-1.0); Blood Urea Nitrogen 3 mg/dL (6-20); Calcium 9.3 mg/dL (8.6-10.3); Carbon Dioxide 22 mEq/L (23-29); Chloride 102 mEq/L (98-107); Globulin 3.8 g/dL (2.4-3.5); Glucose 117 mg/dL (70-105); Osmolality,Calculated 278 (280-300); Potassium 3.7 mEq/L (3.5-5.1); Sodium 135 mEq/L (136-145); eGFR For African Americans > 60 (> 60); eGFR For Non-African Americans > 60 (> 60)
[2019-10-06] MEDS: *HR* HYDROmorphone PF 0.5 MG/0.5 ML SYRINGE IVP PRN ×5 (03:29→20:31)
[2019-10-06] MEDS: *HR* Heparin 5,000 UNIT/ML VIAL SQ SCH ×2 (05:03→18:00)
[2019-10-06] MEDS: Pantoprazole 40 MG VIAL IVP SCH ×2 (05:59→16:50)
[2019-10-06] MEDS: cefTRIAXone 1,000 MG in Water for inj. (sterile) 10 ML IVP SCH (08:29)
[2019-10-06] MEDS: Fenofibrate 54 MG TABLET PO SCH (08:30)
[2019-10-06] MEDS: *HR* FentaNYL PATCH 25 MCG PATCH TD SCH (08:30)
[2019-10-06] MEDS: amLODIPine 5 MG TABLET PO SCH (08:30)
[2019-10-06] MEDS: Gabapentin 100 MG CAPSULE PO SCH ×3 (08:31→20:01)
[2019-10-06] MEDS: predniSONE 20 MG TABLET PO SCH ×2 (08:31→16:50)
[2019-10-06] MEDS: lisinopriL 20 MG TABLET PO SCH (08:31)
[2019-10-07] MEDS: *HR* HYDROmorphone PF 0.5 MG/0.5 ML SYRINGE IVP PRN ×2 (00:33→06:16)
[2019-10-07] MEDS: Pantoprazole 40 MG VIAL IVP SCH (06:16)
[2019-10-07] MEDS: *HR* Heparin 5,000 UNIT/ML VIAL SQ SCH (07:10)
[2019-10-07 07:14] LABS: Alanine Aminotransferase 32 Units/L (7-52); Albumin 3.2 g/dL (3.5-5.7); Albumin/Globulin Ratio 0.9 (1.1-2.2); Alkaline Phosphatase 92 Units/L (34-104); Aspartate Amino Transferase 39 Units/L (13-39); BUN/Creatinine Ratio 8 (6-26); Bilirubin,Total 0.4 mg/dL (0.3-1.0); Blood Urea Nitrogen 4 mg/dL (6-20); Calcium 9.8 mg/dL (8.6-10.3); Carbon Dioxide 29 mEq/L (23-29); Chloride 97 mEq/L (98-107); Globulin 3.6 g/dL (2.4-3.5); Glucose 89 mg/dL (70-105); Osmolality,Calculated 276 (280-300); Potassium 3.1 mEq/L (3.5-5.1); Sodium 135 mEq/L (136-145); Total Protein 6.8 g/dL (6.4-8.9); eGFR For African Americans > 60 (> 60); eGFR For Non-African Americans > 60 (> 60)
[2019-10-07 07:19] VITALS: BP 183/106
[2019-10-07 07:26] LABS: Hematocrit 30.8 % (35.3-44.9); Hemoglobin 10.4 g/dL (11.5-15.4); Lymphocytes # 1.4 K/mcL (0.6-4.6); Lymphocytes % 31.7 %; Mean Corpuscular HGB Conc 33.8 g/dL (31.6-35.5); Mean Corpuscular Hemoglobin 36.2 pg (28.0-33.3); Mean Corpuscular Volume 107.3 fL (83.0-100.0); Mean Platelet Volume 9.3 fL (9.4-12.4); Neutrophils # 2.5 K/mcL (1.6-8.9); Platelet Count 262 K/mcL (140-400); Red Blood Count 2.87 M/mcL (3.82-4.97); Red Cell Distribution Width 14.3 % (11.5-14.5); Segmented Neutrophils % 56.4 %; White Blood Count 4.5 K/mcL (4.3-11.1)
[2019-10-07 07:27] LABS: Eosinophils % 0.4 %; Immature Granulocytes % 0.7 % (0-4); Monocytes # 0.5 K/mcL (0.0-1.3); Monocytes % 10.8 %
[2019-10-07] MEDS: lisinopriL 20 MG TABLET PO SCH (08:00)
[2019-10-07] MEDS: predniSONE 20 MG TABLET PO SCH (08:00)
[2019-10-07] MEDS: Fenofibrate 54 MG TABLET PO SCH (08:00)
[2019-10-07] MEDS: Gabapentin 100 MG CAPSULE PO SCH (08:00)
[2019-10-07] MEDS: amLODIPine 5 MG TABLET PO SCH (08:00)
== END 2019-10-07 09:18 | disposition home or self-care (01) | DRG 439 ==
LOC: EMEROOARM 10:38 → 3BNU 10:38 → SUATTDRO 16:03 → 3BNU 16:57 → 2NNU 10-02 03:33 → SUATTDRO 10-02 10:38 → 2ANU 10-05 11:28
PROVIDERS: ADMIT Internal Medicine; ATTEND Family Medicine

== ENCOUNTER 2019-10-21 14:23 | Inpatient (IN) ==
[2019-10-21] MEDS ORDERED: Morphine Sulfate 2 MG/ML SYRINGE IVP ONE ×2 (14:51→16:18)
[2019-10-21] MEDS ORDERED: 0.9 % Sodium Chloride 1,000 ML IVC ONE (14:51)
[2019-10-21 15:33] LABS: Alanine Aminotransferase 140 Units/L (7-52); Albumin 3.3 g/dL (3.5-5.7); Albumin/Globulin Ratio 0.9 (1.1-2.2); Alkaline Phosphatase 230 Units/L (34-104); Aspartate Amino Transferase 376 Units/L (13-39); BUN/Creatinine Ratio 16 (6-26); Bilirubin,Direct 0.2 mg/dL (0.0-0.2); Bilirubin,Indirect 0.4 mg/dL (0.0-1.0); Bilirubin,Total 0.6 mg/dL (0.3-1.0); Blood Urea Nitrogen 9 mg/dL (6-20); Calcium 8.7 mg/dL (8.6-10.3); Carbon Dioxide 21 mEq/L (23-29); Chloride 88 mEq/L (98-107); Globulin 3.8 g/dL (2.4-3.5); Glucose 102 mg/dL (70-105); Lipase 47 Units/L (11-82); Osmolality,Calculated 259 (280-300); Sodium 125 mEq/L (136-145); Total Protein 7.1 g/dL (6.4-8.9); eGFR For African Americans > 60 (> 60); eGFR For Non-African Americans > 60 (> 60)
[2019-10-21 15:52] LABS: Basophils % 0.3 %; Eosinophils % 0.3 %; Hemoglobin 12.5 g/dL (11.5-15.4); Immature Granulocytes % 0.3 % (0-4); Lymphocytes # 1.2 K/mcL (0.6-4.6); Lymphocytes % 33.1 %; Mean Corpuscular HGB Conc 34.7 g/dL (31.6-35.5); Mean Corpuscular Hemoglobin 34.2 pg (28.0-33.3); Mean Corpuscular Volume 98.4 fL (83.0-100.0); Mean Platelet Volume 9.2 fL (9.4-12.4); Monocytes # 0.2 K/mcL (0.0-1.3); Monocytes % 6.4 %; Neutrophils # 2.1 K/mcL (1.6-8.9); Platelet Count 313 K/mcL (140-400); Red Blood Count 3.66 M/mcL (3.82-4.97); Red Cell Distribution Width 12.8 % (11.5-14.5); Segmented Neutrophils % 59.6 %; White Blood Count 3.6 K/mcL (4.3-11.1)
[2019-10-21] MEDS ORDERED: *HR* LORazepam 2 MG/ML VIAL IVP PRN ×5 (16:04→17:17)
[2019-10-21] MEDS ORDERED: Naloxone 0.4 MG/ML INJ IVP PRN (17:09)
[2019-10-21] MEDS ORDERED: Ibuprofen 400 MG TABLET PO PRN (17:09)
[2019-10-21] MEDS ORDERED: Ondansetron 4 MG/2 ML VIAL IVP PRN (17:09)
[2019-10-21 17:50] LABS: INR 1.2
[2019-10-21 18:04] LABS: BUN/Creatinine Ratio 17 (6-26); Blood Urea Nitrogen 9 mg/dL (6-20); Carbon Dioxide 20 mEq/L (23-29); Chloride 92 mEq/L (98-107); Glucose 93 mg/dL (70-105); Osmolality,Calculated 262 (280-300); Potassium 3.3 mEq/L (3.5-5.1); Sodium 127 mEq/L (136-145); eGFR For African Americans > 60 (> 60); eGFR For Non-African Americans > 60 (> 60)
[2019-10-21 18:06] LABS: Alanine Aminotransferase 128 Units/L (7-52); Albumin/Globulin Ratio 0.8 (1.1-2.2); Alkaline Phosphatase 214 Units/L (34-104); Aspartate Amino Transferase 339 Units/L (13-39); Bilirubin,Direct 0.2 mg/dL (0.0-0.2); Bilirubin,Indirect 0.4 mg/dL (0.0-1.0); Bilirubin,Total 0.6 mg/dL (0.3-1.0); Globulin 3.6 g/dL (2.4-3.5); Total Protein 6.6 g/dL (6.4-8.9)
[2019-10-21] MEDS: Gabapentin 300 MG CAPSULE PO SCH ×2 (18:12→21:59)
[2019-10-21] MEDS ORDERED: Isovue-370 500 ML BOTTLE IVP ONE ×2 (18:12→18:23)
[2019-10-21] MEDS: Thiamine (B-1) 100 MG, Folic Acid 1 MG, MVI, adult with vitamin K 10 ML in 0.9 % Sodi... IVPB SCH (18:12)
[2019-10-21 18:30] LABS: Folate 2.2 ng/mL (3.0-16.0)
[2019-10-21] MEDS: *HR* HYDROmorphone (PF) 1 MG/ML SYRINGE IVP PRN ×2 (18:37→22:37)
[2019-10-21 19:05] LABS: Ferritin > 1500 ng/mL (10-120); Troponin I < 0.03 ng/mL (< 0.04)
[2019-10-21] MEDS: *HR* LORazepam 0.5 MG TABLET PO SCH (20:41)
[2019-10-21 23:38] LABS: Chloride,Urine 20 mEq/L; Creatinine,Urine 22 mg/dL; Potassium,Urine 18.4 mEq/L; Protein/Creatinine Ratio,Urine 0.32 mg/mg (0.00-0.20); Sodium, Urine 14.9 mEq/L
[2019-10-21 23:39] LABS: Amphetamine Screen,Urine Negative ng/mL (Cutoff=1000); Barbiturate Screen,Urine Negative ng/mL (Cutoff=200); Benzodiazepines Screen,Urine Negative ng/mL (Cutoff=200); Cannabinoid Screen,Urine Negative ng/mL (Cutoff = 50); Cocaine Screen,Urine Negative ng/mL (Cutoff= 300); Opiate Screen,Urine Positive ng/mL (Cutoff=300); Phencyclidine Screen,Urine Negative ng/mL (Cutoff=25)
[2019-10-22 00:41] LABS: Basophils % 0.5 %; Hematocrit 33.4 % (35.3-44.9); Hemoglobin 11.8 g/dL (11.5-15.4); Immature Granulocytes % 0.2 % (0-4); Lymphocytes # 0.7 K/mcL (0.6-4.6); Mean Corpuscular HGB Conc 35.3 g/dL (31.6-35.5); Mean Corpuscular Hemoglobin 34.7 pg (28.0-33.3); Mean Corpuscular Volume 98.2 fL (83.0-100.0); Mean Platelet Volume 9.4 fL (9.4-12.4); Monocytes # 0.2 K/mcL (0.0-1.3); Monocytes % 5.6 %; Neutrophils # 3.1 K/mcL (1.6-8.9); Platelet Count 280 K/mcL (140-400); Red Cell Distribution Width 12.9 % (11.5-14.5); Segmented Neutrophils % 75.7 %; White Blood Count 4.1 K/mcL (4.3-11.1)
[2019-10-22 00:57] LABS: BUN/Creatinine Ratio 19 (6-26); Blood Urea Nitrogen 8 mg/dL (6-20); Calcium 7.9 mg/dL (8.6-10.3); Carbon Dioxide 19 mEq/L (23-29); Chloride 94 mEq/L (98-107); Glucose 107 mg/dL (70-105); Osmolality,Calculated 265 (280-300); Potassium 3.7 mEq/L (3.5-5.1); Sodium 128 mEq/L (136-145); eGFR For African Americans > 60 (> 60); eGFR For Non-African Americans > 60 (> 60)
[2019-10-22 00:58] LABS: Albumin/Globulin Ratio 0.9 (1.1-2.2); Bilirubin,Direct 0.2 mg/dL (0.0-0.2); Bilirubin,Indirect 0.4 mg/dL (0.0-1.0); Bilirubin,Total 0.6 mg/dL (0.3-1.0); Globulin 3.4 g/dL (2.4-3.5); Total Protein 6.4 g/dL (6.4-8.9)
[2019-10-22 01:13] LABS: Thyroid Stimulating Hormone 5.527 mcIU/mL (0.340-5.600)
[2019-10-22 01:15] LABS: Triiodothyronine (T3) Free 3.53 pg/mL (2.50-3.90)
[2019-10-22] MEDS: *HR* LORazepam 2 MG/ML VIAL IVP PRN (03:42)
[2019-10-22] MEDS: *HR* HYDROmorphone (PF) 1 MG/ML SYRINGE IVP PRN ×5 (04:26→22:06)
[2019-10-22] MEDS ORDERED: *HR* Metoprolol 5 MG/5 ML VIAL IVP ONE (06:05)
[2019-10-22] MEDS: *HR* Enoxaparin 40 MG/0.4 ML SYRINGE SQ SCH (06:09)
[2019-10-22] MEDS: Folic Acid 1 MG TABLET PO SCH (08:22)
[2019-10-22] MEDS: Gabapentin 300 MG CAPSULE PO SCH ×3 (08:22→20:41)
[2019-10-22] MEDS: *HR* LORazepam 0.5 MG TABLET PO SCH ×3 (08:22→20:41)
[2019-10-22] MEDS: Fenofibrate 54 MG TABLET PO SCH (08:49)
[2019-10-22] MEDS: amLODIPine 5 MG TABLET PO SCH (08:50)
[2019-10-22] MEDS ORDERED: 0.9 % Sodium Chloride 500 ML ONE (11:34)
[2019-10-22] MEDS: 0.9 % Sodium Chloride 1,000 ML IVC SCH (12:06)
[2019-10-22] MEDS: Thiamine (B-1) 100 MG, Folic Acid 1 MG, MVI, adult with vitamin K 10 ML in 0.9 % Sodi... IVPB SCH (16:16)
[2019-10-23 03:40] LABS: Albumin 3.3 g/dL (3.5-5.7); Albumin/Globulin Ratio 0.9 (1.1-2.2); Bilirubin,Direct 0.5 mg/dL (0.0-0.2); Bilirubin,Indirect 0.7 mg/dL (0.0-1.0); Bilirubin,Total 1.2 mg/dL (0.3-1.0); Calcium 8.6 mg/dL (8.6-10.3); Globulin 3.8 g/dL (2.4-3.5); Potassium 4.3 mEq/L (3.5-5.1); Total Protein 7.1 g/dL (6.4-8.9)
[2019-10-23] MEDS: *HR* Enoxaparin 40 MG/0.4 ML SYRINGE SQ SCH (05:17)
[2019-10-23] MEDS: Ibuprofen 800 MG TABLET PO ONE ×2 (05:17→05:57)
[2019-10-23] MEDS: 0.9 % Sodium Chloride 1,000 ML IVC SCH ×2 (05:18→17:08)
[2019-10-23] MEDS ORDERED: *HR* OxyCODONE Immed Rel 5 MG TABLET PO ONE ×2 (05:34→05:40)
[2019-10-23] MEDS ORDERED: 0.9 % Sodium Chloride 1,000 ML IVC ONE (08:08)
[2019-10-23] MEDS ORDERED: *HR* HYDROcodone/Acet 5/325 mg TABLET PO ONE (08:39)
[2019-10-23] MEDS ORDERED: Albumin 25% 25gram/100mL 25 GM/100 ML IV.SOLN IVPB ONE (08:44)
[2019-10-23] MEDS: Folic Acid 1 MG TABLET PO SCH (08:47)
[2019-10-23] MEDS: Gabapentin 300 MG CAPSULE PO SCH ×3 (08:47→19:40)
[2019-10-23] MEDS: *HR* LORazepam 0.5 MG TABLET PO SCH ×3 (08:47→19:40)
[2019-10-23 09:54] LABS: Basophils % 0.5 %; Eosinophils # 0.1 K/mcL (0.0-0.6); Eosinophils % 1.7 %; Hematocrit 29.7 % (35.3-44.9); Immature Granulocytes % 0.2 % (0-4); Lymphocytes # 1.3 K/mcL (0.6-4.6); Lymphocytes % 31.9 %; Mean Corpuscular HGB Conc 32.7 g/dL (31.6-35.5); Mean Corpuscular Hemoglobin 33.9 pg (28.0-33.3); Mean Corpuscular Volume 103.8 fL (83.0-100.0); Mean Platelet Volume 9.3 fL (9.4-12.4); Monocytes # 0.3 K/mcL (0.0-1.3); Monocytes % 7.3 %; Neutrophils # 2.4 K/mcL (1.6-8.9); Platelet Count 153 K/mcL (140-400); Red Blood Count 2.86 M/mcL (3.82-4.97); Red Cell Distribution Width 13.5 % (11.5-14.5); Segmented Neutrophils % 58.4 %; White Blood Count 4.1 K/mcL (4.3-11.1)
[2019-10-23 10:23] LABS: Hemoglobin 9.7 g/dL (11.5-15.4)
[2019-10-23] MEDS: *HR* HYDROmorphone (PF) 1 MG/ML SYRINGE IVP PRN ×4 (11:07→23:50)
[2019-10-23] MEDS: amLODIPine 5 MG TABLET PO SCH (11:09)
[2019-10-23] MEDS: Fenofibrate 54 MG TABLET PO SCH (11:09)
[2019-10-23 15:51] LABS: BUN/Creatinine Ratio 4 (6-26); Blood Urea Nitrogen 3 mg/dL (6-20); Calcium 7.9 mg/dL (8.6-10.3); Carbon Dioxide 21 mEq/L (23-29); Chloride 106 mEq/L (98-107); Glucose 98 mg/dL (70-105); Osmolality,Calculated 269 (280-300); Potassium 4.5 mEq/L (3.5-5.1); Sodium 131 mEq/L (136-145); eGFR For African Americans > 60 (> 60); eGFR For Non-African Americans > 60 (> 60)
[2019-10-23] MEDS: *HR* OxyCODONE Immed Rel 5 MG TABLET PO PRN ×2 (16:56→23:13)
[2019-10-23] MEDS: Thiamine (B-1) 100 MG, Folic Acid 1 MG, MVI, adult with vitamin K 10 ML in 0.9 % Sodi... IVPB SCH (16:57)
[2019-10-24] MEDS: *HR* LORazepam 2 MG/ML VIAL IVP PRN (01:14)
[2019-10-24] MEDS: *HR* HYDROmorphone (PF) 1 MG/ML SYRINGE IVP PRN ×4 (04:06→22:45)
[2019-10-24 06:20] LABS: Basophils % 0.5 %; Eosinophils # 0.1 K/mcL (0.0-0.6); Eosinophils % 1.6 %; Hematocrit 27.9 % (35.3-44.9); Hemoglobin 9.2 g/dL (11.5-15.4); Immature Granulocytes % 1.4 % (0-4); Lymphocytes # 1.4 K/mcL (0.6-4.6); Lymphocytes % 31.1 %; Mean Corpuscular Hemoglobin 34.2 pg (28.0-33.3); Mean Corpuscular Volume 103.7 fL (83.0-100.0); Monocytes # 0.7 K/mcL (0.0-1.3); Monocytes % 15.3 %; Neutrophils # 2.2 K/mcL (1.6-8.9); Platelet Count 146 K/mcL (140-400); Red Blood Count 2.69 M/mcL (3.82-4.97); Red Cell Distribution Width 13.5 % (11.5-14.5); Segmented Neutrophils % 50.1 %; White Blood Count 4.4 K/mcL (4.3-11.1)
[2019-10-24] MEDS: *HR* OxyCODONE Immed Rel 5 MG TABLET PO PRN ×3 (06:31→20:02)
[2019-10-24] MEDS: *HR* Enoxaparin 40 MG/0.4 ML SYRINGE SQ SCH (06:31)
[2019-10-24] MEDS: 0.9 % Sodium Chloride 1,000 ML IVC SCH (06:32)
[2019-10-24] MEDS: Gabapentin 300 MG CAPSULE PO SCH ×3 (08:39→21:36)
[2019-10-24] MEDS: amLODIPine 5 MG TABLET PO SCH (08:40)
[2019-10-24] MEDS: Folic Acid 1 MG TABLET PO SCH (08:40)
[2019-10-24] MEDS: Fenofibrate 54 MG TABLET PO SCH (08:40)
[2019-10-24 09:57] LABS: Alanine Aminotransferase 66 Units/L (7-52); Albumin 3.5 g/dL (3.5-5.7); Albumin/Globulin Ratio 1.1 (1.1-2.2); Alkaline Phosphatase 149 Units/L (34-104); Aspartate Amino Transferase 110 Units/L (13-39); BUN/Creatinine Ratio 6 (6-26); Bilirubin,Direct 0.4 mg/dL (0.0-0.2); Bilirubin,Indirect 0.4 mg/dL (0.0-1.0); Bilirubin,Total 0.8 mg/dL (0.3-1.0); Blood Urea Nitrogen 3 mg/dL (6-20); Calcium 8.4 mg/dL (8.6-10.3); Carbon Dioxide 23 mEq/L (23-29); Chloride 106 mEq/L (98-107); Globulin 3.3 g/dL (2.4-3.5); Glucose 80 mg/dL (70-105); Magnesium 1.5 mg/dL (1.6-2.6); Osmolality,Calculated 276 (280-300); Potassium 4.6 mEq/L (3.5-5.1); Sodium 135 mEq/L (136-145); Total Protein 6.8 g/dL (6.4-8.9); eGFR For African Americans > 60 (> 60); eGFR For Non-African Americans > 60 (> 60)
[2019-10-24] MEDS: MethylPREDNISolone 40 MG/ML VIAL IVP SCH ×2 (11:45→21:35)
[2019-10-24] MEDS: Thiamine (B-1) 100 MG TABLET PO SCH (12:21)
[2019-10-24] MEDS ORDERED: *HR* Heparin 5,000 UNIT/ML VIAL SQ SCH (22:00)
[2019-10-25] MEDS: *HR* HYDROmorphone (PF) 1 MG/ML SYRINGE IVP PRN ×2 (03:15→08:13)
[2019-10-25] MEDS: MethylPREDNISolone 40 MG/ML VIAL IVP SCH ×3 (04:29→20:09)
[2019-10-25] MEDS: *HR* OxyCODONE Immed Rel 5 MG TABLET PO PRN ×2 (04:29→10:11)
[2019-10-25] MEDS: 0.9 % Sodium Chloride 1,000 ML IVC SCH ×2 (05:21→20:15)
[2019-10-25 05:26] LABS: Hematocrit 27.6 % (35.3-44.9); Hemoglobin 8.9 g/dL (11.5-15.4); Immature Granulocytes % 0.8 % (0-4); Lymphocytes # 0.5 K/mcL (0.6-4.6); Lymphocytes % 13.2 %; Mean Corpuscular HGB Conc 32.2 g/dL (31.6-35.5); Mean Corpuscular Volume 108.7 fL (83.0-100.0); Mean Platelet Volume 9.9 fL (9.4-12.4); Monocytes # 0.1 K/mcL (0.0-1.3); Monocytes % 1.9 %; Neutrophils # 3.1 K/mcL (1.6-8.9); Platelet Count 171 K/mcL (140-400); Red Blood Count 2.54 M/mcL (3.82-4.97); Red Cell Distribution Width 13.4 % (11.5-14.5); Segmented Neutrophils % 84.1 %; White Blood Count 3.7 K/mcL (4.3-11.1)
[2019-10-25 05:45] LABS: BUN/Creatinine Ratio 8 (6-26); Blood Urea Nitrogen 4 mg/dL (6-20); Calcium 8.9 mg/dL (8.6-10.3); Carbon Dioxide 24 mEq/L (23-29); Chloride 106 mEq/L (98-107); Glucose 93 mg/dL (70-105); Magnesium 1.5 mg/dL (1.6-2.6); Osmolality,Calculated 277 (280-300); Potassium 4.9 mEq/L (3.5-5.1); Sodium 135 mEq/L (136-145); eGFR For African Americans > 60 (> 60); eGFR For Non-African Americans > 60 (> 60)
[2019-10-25 05:48] LABS: Albumin 3.2 g/dL (3.5-5.7); Bilirubin,Direct 0.2 mg/dL (0.0-0.2); Bilirubin,Indirect 0.3 mg/dL (0.0-1.0); Bilirubin,Total 0.5 mg/dL (0.3-1.0); Globulin 3.1 g/dL (2.4-3.5); Total Protein 6.3 g/dL (6.4-8.9)
[2019-10-25] MEDS: Thiamine (B-1) 100 MG TABLET PO SCH (08:11)
[2019-10-25] MEDS: *HR* LORazepam 2 MG/ML VIAL IVP PRN ×2 (08:12→16:12)
[2019-10-25] MEDS: Folic Acid 1 MG TABLET PO SCH (08:12)
[2019-10-25] MEDS: Gabapentin 300 MG CAPSULE PO SCH ×3 (08:12→20:09)
[2019-10-25] MEDS: Fenofibrate 54 MG TABLET PO SCH (08:12)
[2019-10-25] MEDS: *HR* Enoxaparin 40 MG/0.4 ML SYRINGE SQ SCH (08:13)
[2019-10-25] MEDS ORDERED: *HR* Meperidine 25 MG/ML SYRINGE IVP PRN (11:33)
[2019-10-25] MEDS: Metoprolol XL (24 HR) Succ 25 MG TAB.ER.24H PO SCH (12:19)
[2019-10-25] MEDS: *HR* OxyCODONE/APAP 10/325 TABLET PO PRN ×2 (16:08→22:17)
[2019-10-26] MEDS: *HR* OxyCODONE/APAP 10/325 TABLET PO PRN ×5 (03:13→21:37)
[2019-10-26] MEDS: MethylPREDNISolone 40 MG/ML VIAL IVP SCH ×3 (03:40→21:37)
[2019-10-26 04:08] LABS: Hematocrit 25.9 % (35.3-44.9); Hemoglobin 8.5 g/dL (11.5-15.4); Immature Granulocytes % 0.5 % (0-4); Lymphocytes # 0.6 K/mcL (0.6-4.6); Lymphocytes % 14.7 %; Mean Corpuscular HGB Conc 32.8 g/dL (31.6-35.5); Mean Corpuscular Hemoglobin 35.4 pg (28.0-33.3); Mean Corpuscular Volume 107.9 fL (83.0-100.0); Mean Platelet Volume 9.3 fL (9.4-12.4); Monocytes # 0.1 K/mcL (0.0-1.3); Monocytes % 3.5 %; Neutrophils # 3.1 K/mcL (1.6-8.9); Platelet Count 178 K/mcL (140-400); Red Cell Distribution Width 13.7 % (11.5-14.5); Segmented Neutrophils % 81.3 %; White Blood Count 3.8 K/mcL (4.3-11.1)
[2019-10-26 04:27] LABS: BUN/Creatinine Ratio 8 (6-26); Blood Urea Nitrogen 4 mg/dL (6-20); Calcium 9.3 mg/dL (8.6-10.3); Carbon Dioxide 25 mEq/L (23-29); Chloride 105 mEq/L (98-107); Glucose 109 mg/dL (70-105); Magnesium 1.7 mg/dL (1.6-2.6); Osmolality,Calculated 279 (280-300); Potassium 4.3 mEq/L (3.5-5.1); Sodium 136 mEq/L (136-145); eGFR For African Americans > 60 (> 60); eGFR For Non-African Americans > 60 (> 60)
[2019-10-26] MEDS: *HR* Enoxaparin 40 MG/0.4 ML SYRINGE SQ SCH (07:03)
[2019-10-26] MEDS: Thiamine (B-1) 100 MG TABLET PO SCH (08:42)
[2019-10-26] MEDS: Gabapentin 300 MG CAPSULE PO SCH ×3 (08:42→21:37)
[2019-10-26] MEDS: Folic Acid 1 MG TABLET PO SCH (08:42)
[2019-10-26] MEDS: Metoprolol XL (24 HR) Succ 25 MG TAB.ER.24H PO SCH (08:42)
[2019-10-26] MEDS: Fenofibrate 54 MG TABLET PO SCH (08:42)
[2019-10-26] MEDS ORDERED: Cyanocobalamin (B-12) 1,000 MCG/ML VIAL IM ONE (09:38)
[2019-10-27 00:40] LABS: Hematocrit 29.7 % (35.3-44.9); Hemoglobin 9.7 g/dL (11.5-15.4); Immature Granulocytes % 0.5 % (0-4); Lymphocytes # 0.6 K/mcL (0.6-4.6); Mean Corpuscular HGB Conc 32.7 g/dL (31.6-35.5); Mean Corpuscular Volume 107.2 fL (83.0-100.0); Mean Platelet Volume 9.4 fL (9.4-12.4); Monocytes # 0.1 K/mcL (0.0-1.3); Monocytes % 2.7 %; Neutrophils # 3.7 K/mcL (1.6-8.9); Platelet Count 224 K/mcL (140-400); Red Blood Count 2.77 M/mcL (3.82-4.97); Segmented Neutrophils % 82.8 %; White Blood Count 4.4 K/mcL (4.3-11.1)
[2019-10-27 00:57] LABS: BUN/Creatinine Ratio 10 (6-26); Blood Urea Nitrogen 6 mg/dL (6-20); Calcium 9.9 mg/dL (8.6-10.3); Carbon Dioxide 26 mEq/L (23-29); Chloride 101 mEq/L (98-107); Glucose 108 mg/dL (70-105); Magnesium 1.5 mg/dL (1.6-2.6); Osmolality,Calculated 278 (280-300); Potassium 4.2 mEq/L (3.5-5.1); Sodium 135 mEq/L (136-145); eGFR For African Americans > 60 (> 60); eGFR For Non-African Americans > 60 (> 60)
[2019-10-27] MEDS: MethylPREDNISolone 40 MG/ML VIAL IVP SCH (03:09)
[2019-10-27] MEDS: *HR* OxyCODONE/APAP 10/325 TABLET PO PRN (03:09)
[2019-10-27 06:08] VITALS: BP 152/106
[2019-10-27] MEDS ORDERED: Morphine Sulfate 2 MG/ML SYRINGE IVP ONE (06:16)
[2019-10-27] MEDS: Fenofibrate 54 MG TABLET PO SCH (07:53)
[2019-10-27] MEDS: Thiamine (B-1) 100 MG TABLET PO SCH (07:54)
[2019-10-27] MEDS: Metoprolol XL (24 HR) Succ 25 MG TAB.ER.24H PO SCH (07:54)
[2019-10-27] MEDS: amLODIPine 5 MG TABLET PO SCH (07:55)
[2019-10-27] MEDS: Folic Acid 1 MG TABLET PO SCH (07:58)
[2019-10-27] MEDS: *HR* Enoxaparin 40 MG/0.4 ML SYRINGE SQ SCH (07:58)
[2019-10-27] MEDS: Gabapentin 300 MG CAPSULE PO SCH (07:58)
== END 2019-10-27 08:40 | disposition short-term general hospital (02) | DRG 74 ==
LOC: EMEROOARM 14:23 → 2NENU 14:23 → SUATTDRO 16:35 → 2NENU 16:56 → 3ANU 10-24 20:16
PROVIDERS: ADMIT Internal Medicine; ATTEND Family Medicine